=== PATIENT | male | born 1980 | race Caucasian/White ===

== ENCOUNTER → 2016-03-07 | Outpatient (REF) | payer BC ==
[2016-03-07 12:49] LABS: ALBUMIN 4.3 GM/DL (3.2-5.2); ALBUMIN/GLOBULIN RATIO 1.43 (1.00-1.93); ALKALINE PHOSPHATASE 58 U/L (45-117); ALT/SGPT 23 U/L (12-78); ANION GAP 10 MEQ/L (8-16); AST/SGOT 13 U/L (15-37); BILIRUBIN,TOTAL 0.8 MG/DL (0.2-1.0); BLOOD UREA NITROGEN 13 MG/DL (7-18); CALCIUM LEVEL 9.1 MG/DL (8.5-10.1); CARBON DIOXIDE LEVEL 28 MEQ/L (21-32); CHLORIDE LEVEL 104 MEQ/L (98-107); CHOLESTEROL LEVEL 167 MG/DL (<200); CREATININE FOR GFR 0.64 MG/DL (0.70-1.30); GLOMERULAR FILTRATION RATE > 60.0 (>60); GLUCOSE, FASTING 78 MG/DL (70-105); POTASSIUM SERUM 4.1 MEQ/L (3.5-5.1); SODIUM LEVEL 142 MEQ/L (136-145); TOTAL PROTEIN 7.3 GM/DL (6.4-8.2); TRIGLYCERIDES LEVEL 45 MG/DL (<150)
== END ==
LOC: M SFHCPLAZ 07:41
PROVIDERS: ATTEND Physician Assistant
DX: E11.9 Type 2 diabetes mellitus without complications (principal); E78.5 Hyperlipidemia, unspecified

== ENCOUNTER 2016-03-09 10:03 | Emergency (ER) | payer OTHER, BC ==
--- NOTE | 2016-03-09 11:05 | EDDOCDS ---
Nurse's Notes [facility] Name: Fidel Nicole Age: 35 yrs Sex: Male : 1980 Arrival Date: 03/09/2016 Time: 10:03 Bed TR1 Private MD: Amadou Champion M Diagnosis: Patellar tendinitis, left knee Presentation: 03/09 10:08 Presenting complaint: Patient states: sharp pain to patella area of left knee since dy this Saturday night. pain started while walking. activity makes pain worse. Adult Sepsis Screening: The patient does not have new or worsening altered mentation. Patient's respiratory rate is less than 22. Systolic blood pressure is greater than 100. Patient has a qSOFA score of 0- Negative Sepsis Screen. Suicide/Homicide risk assessment- the patient denies having any suicidal and/or homicidal ideations and does not present with any other emotional, behavioral or mental health complaints. Status: Patient is not a rn medical inpatient services or dependent. Transition of care: patient was not received from another setting of care. 10:08 Acuity: MARIA ISABEL Level 4 dy 10:08 Method Of Arrival: Walkin/Carried/Asstd dy Triage Assessment: 10:10 General: Appears in no apparent distress. Pain: Location: left knee. HIV screening NA dy for this visit Offered previously. Historical: - Allergies: No known drug Allergies; - Home Meds: 1. metformin 1,000 mg Oral tab 2 times per day (Last dose: 03/09/2016 07:00) 2. lantus insulin 35 units at bedtime (Last dose: 03/08/2016) - PMHx: Osteoarthritis; Diabetes - NIDDM: controlled; - PSHx: none; - Social history: Smoking status: Patient states was never smoker of tobacco. No barriers to communication noted, The patient speaks fluent Thai, Speaks appropriately for age. - Family history: Not pertinent. - : The pt / caregiver states he / she is not on anticoagulants. Home medication list is obtained from the patient. - Exposure Risk Screening:: None identified. Screenin:57 Screening information is obtained from the patient. Fall risk: No risks identified. srm Assistance ADL's: requires no assistance with activities of daily living. Abuse/DV Screen: The patient / caregiver reports he/she is: not in a situation that causes fear, pain or injury. Nutritional screening: No deficits noted. Advance Directives: There is no active DNR order. home support is adequate. Assessment: 10:57 Musculoskeletal: Circulation, motion, and sensation intact no swelling or bruising srm noted to left knee. Vital Signs: 10:05 BP 153 / 92; Pulse 92; Resp 18; Temp 97.8(O); Pulse Ox 97% on R/A; Weight 108.86 kg ct3 (M); Height 6 ft. 0 in. (182.88 cm) (R); Pain 2/10; 10:05 Body Mass Index 32.55 (108.86 kg, 182.88 cm) ct3 Vitals: 10:05 Log In Time: March 09, 2016 at 10:02. ct3 ED Course: 10:05 Patient visited by Evelyn Knight PCA. ct3 10:05 Amadou Champion is Private Physician. ct3 10:05 Patient moved to Waiting ct3 10:06 Patient moved to Pre RCE ct3 10:07 Patient moved to Triage 2 dy 10:09 Triage Initiated dy 10:39 Blanco Conde PA-C is PHCP. ar2 10:39 Bebe Boucher MD is Attending Physician. ar2 10:41 Patient visited by Blanco Conde PA-C. ar2 10:53 Amadou Champion is Referral Physician. ar2 10:57 The patient / caregiver is instructed regarding the plan of care and ED course. Patient srm has correct armband on for positive identification. 10:57 No IV's were initiated during this patient's visit. No procedures done that require srm assistance. Rao wrap to left knee. Patient has positive distal pulse, brisk capillary refill, and positive sensation after application. 10:58 Patient visited by Fabiola Christy RN. srm 11:02 Patient moved to TR1 dy Order Results: There are currently no results for this order. Outcome: 10:54 Discharge ordered by Provider. ar2 11:02 Discharge Assessment: patient administered narcotics - no. The following High Risk dy Discharge criteria are identified: None. Discharged to home ambulatory. Condition: stable. Discharge instructions given to patient, Instructed on discharge instructions, follow up and referral plans. medication usage, Demonstrated understanding of instructions, medications, Pt was receptive of discharge instructions/ teaching. Prescriptions given X 1. No special radiology studies were completed. Property sent home with patient. 11:03 Patient left the ED. queenie Signatures: Fabiola Christy RN Yaniv Weber RN RN dy Robertshaw, Aaron, PA-C PA-C ar2 Evelyn Knight, YESY STUDENT UNION CONSULTANT ct3 MTDD
--- NOTE | 2016-03-09 11:05 | EDDOCDS ---
Physician Documentation [facility] Name: Fidel Nicole Age: 35 yrs Sex: Male : 1980 Arrival Date: 03/09/2016 Time: 10:03 Bed TR1 Private MD: Amadou Champion M Disposition: 03/09/16 10:54 Discharged to Home/Self Care. Impression: Patellar tendinitis, left knee. - Condition is Stable. - Discharge Instructions: Tendinitis. - Prescriptions for Naprosyn 500 mg Oral Tablet - take 1 tablet by ORAL route 2 times per day take with food; 30 tablet. - Medication Reconciliation, Local Pharmacy Hours form. - Follow up: Amadou Champion; When: 1 week; Reason: Recheck today's complaints. - Problem is new. - Symptoms are unchanged. Historical: - Allergies: No known drug Allergies; - Home Meds: 1. metformin 1,000 mg Oral tab 2 times per day (Last dose: 03/09/2016 07:00) 2. lantus insulin 35 units at bedtime (Last dose: 03/08/2016) - PMHx: Osteoarthritis; Diabetes - NIDDM: controlled; - PSHx: none; - Social history: Smoking status: Patient states was never smoker of tobacco. No barriers to communication noted, The patient speaks fluent Swedish, Speaks appropriately for age. - Family history: Not pertinent. - : The pt / caregiver states he / she is not on anticoagulants. Home medication list is obtained from the patient. - Exposure Risk Screening:: None identified. Vital Signs: 03/09 10:05 BP 153 / 92; Pulse 92; Resp 18; Temp 97.8(O); Pulse Ox 97% on R/A; Weight 108.86 kg / ct3 240 lbs (M); Height 6 ft. 0 in. (182.88 cm) (R); Pain 2/10; 10:05 Body Mass Index 32.55 (108.86 kg, 182.88 cm) ct3 MDM: 10:26 Knee, Complete Ordered. EDMS 10:46 Financial registration complete. lg 10:53 Rao Wrap ordered. ar2 Signatures: Dispatcher [employer] EDMS Fabiola Christy RN RN srm Ganter, LoriLee, Joss Reg lg Keke, Yanvi, RN RN dy Robertshaw, Blanco, PA-C PA-C ar2 MTDD
--- NOTE | 2016-03-09 20:25 | REP ---
Left knee series 03/09/2016 Indication: Left knee pain Comparison: None Findings: The joint spaces are maintained. There is no acute fracture, subluxation or dislocation within the left knee. Hypertrophic bone formation and/or spurring is seen at the patellar tendinous insertion on the anterior tibial tubercle. This is consistent with calcific tendonitis, or can be seen with Harlan Schlatter. Impression: no fracture or joint effusion. Calcification in the patellar tendon insertion on the anterior tibial tubercle compatible with calcific tendinitis; or Harlan Schlatter (usually in in younger age group). Signed by Lauren Colón MD 03/09/2016 08:16 P
--- NOTE | 2016-03-11 12:04 | EDDOCDS ---
Nurse's Notes [facility] Name: Fidel Nicole Age: 35 yrs Sex: Male : 1980 Arrival Date: 03/09/2016 Time: 10:03 Bed TR1 Private MD: Amadou Champion M Diagnosis: Patellar tendinitis, left knee Presentation: 03/09 10:08 Presenting complaint: Patient states: sharp pain to patella area of left knee since dy this Saturday night. pain started while walking. activity makes pain worse. Adult Sepsis Screening: The patient does not have new or worsening altered mentation. Patient's respiratory rate is less than 22. Systolic blood pressure is greater than 100. Patient has a qSOFA score of 0- Negative Sepsis Screen. Suicide/Homicide risk assessment- the patient denies having any suicidal and/or homicidal ideations and does not present with any other emotional, behavioral or mental health complaints. 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 Transition of care: patient was not received from another setting of care. 10:08 Acuity: MARIA ISABEL Level 4 dy 10:08 Method Of Arrival: Walkin/Carried/Asstd dy Triage Assessment: 10:10 General: Appears in no apparent distress. Pain: Location: left knee. HIV screening NA dy for this visit Offered previously. Historical: - Allergies: No known drug Allergies; - Home Meds: 1. metformin 1,000 mg Oral tab 2 times per day (Last dose: 03/09/2016 07:00) 2. lantus insulin 35 units at bedtime (Last dose: 03/08/2016) - PMHx: Osteoarthritis; Diabetes - NIDDM: controlled; - PSHx: none; - Social history: Smoking status: Patient states was never smoker of tobacco. No barriers to communication noted, The patient speaks fluent Tamazight, Speaks appropriately for age. - Family history: Not pertinent. - : The pt / caregiver states he / she is not on anticoagulants. Home medication list is obtained from the patient. - Exposure Risk Screening:: None identified. Screenin:57 Screening information is obtained from the patient. Fall risk: No risks identified. srm Assistance ADL's: requires no assistance with activities of daily living. Abuse/DV Screen: The patient / caregiver reports he/she is: not in a situation that causes fear, pain or injury. Nutritional screening: No deficits noted. Advance Directives: There is no active DNR order. home support is adequate. Assessment: 10:57 Musculoskeletal: Circulation, motion, and sensation intact no swelling or bruising srm noted to left knee. Vital Signs: 10:05 BP 153 / 92; Pulse 92; Resp 18; Temp 97.8(O); Pulse Ox 97% on R/A; Weight 108.86 kg ct3 (M); Height 6 ft. 0 in. (182.88 cm) (R); Pain 10; 10:05 Body Mass Index 32.55 (108.86 kg, 182.88 cm) ct3 Vitals: 10:05 Log In Time: March 09, 2016 at 10:02. ct3 ED Course: 10:05 Patient visited by Evelyn Knight PCA. ct3 10:05 Amadou Champion is Private Physician. ct3 10:05 Patient moved to Waiting ct3 10:06 Patient moved to Pre RCE ct3 10:07 Patient moved to Triage 2 dy 10:09 Triage Initiated dy 10:39 Blanco Conde PA-C is PHCP. ar2 10:39 Bebe Boucher MD is Attending Physician. ar2 10:41 Patient visited by Blanco Conde PA-C. ar2 10:53 Amadou Champion is Referral Physician. ar2 10:57 The patient / caregiver is instructed regarding the plan of care and ED course. Patient srm has correct armband on for positive identification. 10:57 No IV's were initiated during this patient's visit. No procedures done that require srm assistance. Rao wrap to left knee. Patient has positive distal pulse, brisk capillary refill, and positive sensation after application. 10:58 Patient visited by Fabiola Christy RN. srm 11:02 Patient moved to TR1 dy 13:14 [place] [place] was scanned into [employer] and attached to record. lg 14:28 T-Sheet-- Draft Copy was scanned into [employer] and attached to record. gb 14:29 Radiology Report was scanned into [employer] and attached to record. gb 21:02 Knee, Complete Returned. EDMS Order Results: Radiology Order: Knee, Complete Test: Knee, Complete REASON FOR EXAMINATION: LEFT KNEE PAIN; Left knee series 03/09/2016; ; Indication: Left knee pain; ; Comparison: None; ; Findings: The joint spaces are maintained. There is no acute fracture,; subluxation or dislocation within the left knee. Hypertrophic bone formation; and/or spurring is seen at the patellar tendinous insertion on the anterior; tibial tubercle. This is consistent with calcific tendonitis, or can be seen; with Milton Schlatter.; ; Impression: no fracture or joint effusion.; ; Calcification in the patellar tendon insertion on the anterior tibial tubercle; compatible with calcific tendinitis; or Milton Schlatter (usually in in younger; age group).; ; ; Signed by; Lauren Colón MD 03/09/2016 08:16 P; Outcome: 10:54 Discharge ordered by Provider. ar2 11:02 Discharge Assessment: patient administered narcotics - no. The following High Risk dy Discharge criteria are identified: None. Discharged to home ambulatory. Condition: stable. Discharge instructions given to patient, Instructed on discharge instructions, follow up and referral plans. medication usage, Demonstrated understanding of instructions, medications, Pt was receptive of discharge instructions/ teaching. Prescriptions given X 1. No special radiology studies were completed. Property sent home with patient. 11:03 Patient left the ED. dy Signatures: Dispatcher [employer] EDMS Fabiola Chritsy, RN RN [facility] Elli Flores, Reg Reg gb Masha Espinosa, Reg Reg Yaniv Chavez RN RN dy Robertshaw, Aaron, PA-Evelyn PA-Evelyn ar2 Evelyn Knight, PERSONAL CARE ATTENDANT PERSONAL CARE ATTENDANT ct3 Chart Complete MTDD
--- NOTE | 2016-03-11 12:04 | EDDOCDS ---
Physician Documentation [facility] Name: Fidel Nicole Age: 35 yrs Sex: Male : 1980 Arrival Date: 03/09/2016 Time: 10:03 Bed TR1 Private MD: Amadou Champion M Disposition: 03/09/16 10:54 Discharged to Home/Self Care. Impression: Patellar tendinitis, left knee. - Condition is Stable. - Discharge Instructions: Tendinitis. - Prescriptions for Naprosyn 500 mg Oral Tablet - take 1 tablet by ORAL route 2 times per day take with food; 30 tablet. - Medication Reconciliation, Local Pharmacy Hours form. - Follow up: Amadou Champion; When: 1 week; Reason: Recheck today's complaints. - Problem is new. - Symptoms are unchanged. Historical: - Allergies: No known drug Allergies; - Home Meds: 1. metformin 1,000 mg Oral tab 2 times per day (Last dose: 03/09/2016 07:00) 2. lantus insulin 35 units at bedtime (Last dose: 03/08/2016) - PMHx: Osteoarthritis; Diabetes - NIDDM: controlled; - PSHx: none; - Social history: Smoking status: Patient states was never smoker of tobacco. No barriers to communication noted, The patient speaks fluent Kazakh, Speaks appropriately for age. - Family history: Not pertinent. - : The pt / caregiver states he / she is not on anticoagulants. Home medication list is obtained from the patient. - Exposure Risk Screening:: None identified. Vital Signs: 03/09 10:05 BP 153 / 92; Pulse 92; Resp 18; Temp 97.8(O); Pulse Ox 97% on R/A; Weight 108.86 kg / ct3 240 lbs (M); Height 6 ft. 0 in. (182.88 cm) (R); Pain 2/10; 10:05 Body Mass Index 32.55 (108.86 kg, 182.88 cm) ct3 MDM: 10:26 Knee, Complete Ordered. EDMS 10:46 Financial registration complete. lg 10:53 Rao Wrap ordered. ar2 13:14 [place] [place] Agreement was scanned into [employer] and attached to record. lg 14:28 T-Sheet-- Draft Copy was scanned into [employer] and attached to record. gb 14:29 Radiology Report was scanned into [employer] and attached to record. gb Signatures: Dispatcher [employer] EDFabiola Anthony, RN RN srm Elli Flores, Reg Reg gb Masha Espinosa, Reg Reg lg Yaniv Davies RN RN dy Robertshaw, Aaron, PAJuliaC PALg ar2 The chart was reviewed and I authenticate all verbal orders and agree with the evaluation and treatment provided.Attachments: 13:14 [facility] [place] Payment Agreement lg 14:28 T-Sheet-- Draft Copy gb Chart Complete MTDD
--- NOTE | 2016-03-11 12:04 | EDDOCDS ---
Physician Documentation [facility] Name: Fidel Nicole Age: 35 yrs Sex: Male : 1980 Arrival Date: 03/09/2016 Time: 10:03 Bed TR1 Private MD: Amadou Champion M Disposition: 03/09/16 10:54 Discharged to Home/Self Care. Impression: Patellar tendinitis, left knee. - Condition is Stable. - Discharge Instructions: Tendinitis. - Prescriptions for Naprosyn 500 mg Oral Tablet - take 1 tablet by ORAL route 2 times per day take with food; 30 tablet. - Medication Reconciliation, Local Pharmacy Hours form. - Follow up: Amadou Champion; When: 1 week; Reason: Recheck today's complaints. - Problem is new. - Symptoms are unchanged. Historical: - Allergies: No known drug Allergies; - Home Meds: 1. metformin 1,000 mg Oral tab 2 times per day (Last dose: 03/09/2016 07:00) 2. lantus insulin 35 units at bedtime (Last dose: 03/08/2016) - PMHx: Osteoarthritis; Diabetes - NIDDM: controlled; - PSHx: none; - Social history: Smoking status: Patient states was never smoker of tobacco. No barriers to communication noted, The patient speaks fluent Tanzanian, Speaks appropriately for age. - Family history: Not pertinent. - : The pt / caregiver states he / she is not on anticoagulants. Home medication list is obtained from the patient. - Exposure Risk Screening:: None identified. Vital Signs: 03/09 10:05 BP 153 / 92; Pulse 92; Resp 18; Temp 97.8(O); Pulse Ox 97% on R/A; Weight 108.86 kg / ct3 240 lbs (M); Height 6 ft. 0 in. (182.88 cm) (R); Pain 2/10; 10:05 Body Mass Index 32.55 (108.86 kg, 182.88 cm) ct3 MDM: 10:26 Knee, Complete Ordered. EDMS 10:46 Financial registration complete. lg 10:53 Rao Wrap ordered. ar2 13:14 [place] [place] Payment Agreement was scanned into [employer] and attached to record. lg 14:28 T-Sheet-- Draft Copy was scanned into [employer] and attached to record. gb 14:29 Radiology Report was scanned into [employer] and attached to record. gb Signatures: Dispatcher [employer] EDFabiola Anthony, RN RN srm Elli Flores, Reg Reg gb Masha Espinosa, Reg Reg lg Yaniv Davies RN RN dy Robertshaw, Aaron, PAJuliaC PALg ar2 The chart was reviewed and I authenticate all verbal orders and agree with the evaluation and treatment provided.Attachments: 13:14 [place] [place] Payment Agreement lg 14:28 T-Sheet-- Draft Copy gb Chart Complete MTDD
--- NOTE | 2016-03-13 20:34 | EDDOCDS ---
Nurse's Notes [facility] Name: Fidel Nicole Age: 35 yrs Sex: Male : 1980 Arrival Date: 03/09/2016 Time: 10:03 Bed TR1 Private MD: Amadou Champion M Diagnosis: Patellar tendinitis, left knee Presentation: 03/09 10:08 Presenting complaint: Patient states: sharp pain to patella area of left knee since dy this Saturday night. pain started while walking. activity makes pain worse. Adult Sepsis Screening: The patient does not have new or worsening altered mentation. Patient's respiratory rate is less than 22. Systolic blood pressure is greater than 100. Patient has a qSOFA score of 0- Negative Sepsis Screen. Suicide/Homicide risk assessment- the patient denies having any suicidal and/or homicidal ideations and does not present with any other emotional, behavioral or mental health complaints. Status: Patient is not a sales service supervisor or dependent. Transition of care: patient was not received from another setting of care. 10:08 Acuity: MARIA ISABEL Level 4 dy 10:08 Method Of Arrival: Walkin/Carried/Asstd dy Triage Assessment: 10:10 General: Appears in no apparent distress. Pain: Location: left knee. HIV screening NA dy for this visit Offered previously. Historical: - Allergies: No known drug Allergies; - Home Meds: 1. metformin 1,000 mg Oral tab 2 times per day (Last dose: 03/09/2016 07:00) 2. lantus insulin 35 units at bedtime (Last dose: 03/08/2016) - PMHx: Osteoarthritis; Diabetes - NIDDM: controlled; - PSHx: none; - Social history: Smoking status: Patient states was never smoker of tobacco. No barriers to communication noted, The patient speaks fluent Amharic, Speaks appropriately for age. - Family history: Not pertinent. - : The pt / caregiver states he / she is not on anticoagulants. Home medication list is obtained from the patient. - Exposure Risk Screening:: None identified. Screenin:57 Screening information is obtained from the patient. Fall risk: No risks identified. srm Assistance ADL's: requires no assistance with activities of daily living. Abuse/DV Screen: The patient / caregiver reports he/she is: not in a situation that causes fear, pain or injury. Nutritional screening: No deficits noted. Advance Directives: There is no active DNR order. home support is adequate. Assessment: 10:57 Musculoskeletal: Circulation, motion, and sensation intact no swelling or bruising srm noted to left knee. Vital Signs: 10:05 BP 153 / 92; Pulse 92; Resp 18; Temp 97.8(O); Pulse Ox 97% on R/A; Weight 108.86 kg ct3 (M); Height 6 ft. 0 in. (182.88 cm) (R); Pain 10; 10:05 Body Mass Index 32.55 (108.86 kg, 182.88 cm) ct3 Vitals: 10:05 Log In Time: March 09, 2016 at 10:02. ct3 ED Course: 10:05 Patient visited by Evelyn Knight PCA. ct3 10:05 Amadou Champion is Private Physician. ct3 10:05 Patient moved to Waiting ct3 10:06 Patient moved to Pre RCE ct3 10:07 Patient moved to Triage 2 dy 10:09 Triage Initiated dy 10:39 Blanco Conde PA-C is PHCP. ar2 10:39 Bebe Boucher MD is Attending Physician. ar2 10:41 Patient visited by Blanco Conde PA-C. ar2 10:53 Amadou Champion is Referral Physician. ar2 10:57 The patient / caregiver is instructed regarding the plan of care and ED course. Patient srm has correct armband on for positive identification. 10:57 No IV's were initiated during this patient's visit. No procedures done that require srm assistance. Rao wrap to left knee. Patient has positive distal pulse, brisk capillary refill, and positive sensation after application. 10:58 Patient visited by Fabiola Christy RN. srm 11:02 Patient moved to TR1 dy 13:14 [place] [place] Payment Agreement was scanned into [employer] and attached to record. lg 14:28 T-Sheet-- Draft Copy was scanned into [employer] and attached to record. gb 14:29 Radiology Report was scanned into [employer] and attached to record. gb 21:02 Knee, Complete Returned. EDMS Order Results: Radiology Order: Knee, Complete Test: Knee, Complete REASON FOR EXAMINATION: LEFT KNEE PAIN; Left knee series 03/09/2016; ; Indication: Left knee pain; ; Comparison: None; ; Findings: The joint spaces are maintained. There is no acute fracture,; subluxation or dislocation within the left knee. Hypertrophic bone formation; and/or spurring is seen at the patellar tendinous insertion on the anterior; tibial tubercle. This is consistent with calcific tendonitis, or can be seen; with Milton Schlatter.; ; Impression: no fracture or joint effusion.; ; Calcification in the patellar tendon insertion on the anterior tibial tubercle; compatible with calcific tendinitis; or Milton Schlatter (usually in in younger; age group).; ; ; Signed by; Lauren Colón MD 03/09/2016 08:16 P; Outcome: 10:54 Discharge ordered by Provider. ar2 11:02 Discharge Assessment: patient administered narcotics - no. The following High Risk dy Discharge criteria are identified: None. Discharged to home ambulatory. Condition: stable. Discharge instructions given to patient, Instructed on discharge instructions, follow up and referral plans. medication usage, Demonstrated understanding of instructions, medications, Pt was receptive of discharge instructions/ teaching. Prescriptions given X 1. No special radiology studies were completed. Property sent home with patient. 11:03 Patient left the ED. dy Signatures: Dispatcher [employer] EDMS Fabiola Christy, RN RN [facility] Elli Flores, Reg Reg gb Masha Espinosa, Reg Reg Yaniv Chavez RN RN dy Robertshaw, Aaron, PA-Evelyn PA-Evelyn ar2 Evelyn Knight, NETWORK ADMINISTRATOR NETWORK ADMINISTRATOR ct3 MTDD
--- NOTE | 2016-03-13 20:34 | EDDOCDS ---
Physician Documentation [facility] Name: Fidel Nicole Age: 35 yrs Sex: Male : 1980 Arrival Date: 03/09/2016 Time: 10:03 Bed TR1 Private MD: Amadou Champion M Disposition: 03/09/16 10:54 Discharged to Home/Self Care. Impression: Patellar tendinitis, left knee. - Condition is Stable. - Discharge Instructions: Tendinitis. - Prescriptions for Naprosyn 500 mg Oral Tablet - take 1 tablet by ORAL route 2 times per day take with food; 30 tablet. - Medication Reconciliation, Local Pharmacy Hours form. - Follow up: Amadou Champion; When: 1 week; Reason: Recheck today's complaints. - Problem is new. - Symptoms are unchanged. Historical: - Allergies: No known drug Allergies; - Home Meds: 1. metformin 1,000 mg Oral tab 2 times per day (Last dose: 03/09/2016 07:00) 2. lantus insulin 35 units at bedtime (Last dose: 03/08/2016) - PMHx: Osteoarthritis; Diabetes - NIDDM: controlled; - PSHx: none; - Social history: Smoking status: Patient states was never smoker of tobacco. No barriers to communication noted, The patient speaks fluent Tongan, Speaks appropriately for age. - Family history: Not pertinent. - : The pt / caregiver states he / she is not on anticoagulants. Home medication list is obtained from the patient. - Exposure Risk Screening:: None identified. Vital Signs: 03/09 10:05 BP 153 / 92; Pulse 92; Resp 18; Temp 97.8(O); Pulse Ox 97% on R/A; Weight 108.86 kg / ct3 240 lbs (M); Height 6 ft. 0 in. (182.88 cm) (R); Pain 2/10; 10:05 Body Mass Index 32.55 (108.86 kg, 182.88 cm) ct3 MDM: 10:26 Knee, Complete Ordered. EDMS 10:46 Financial registration complete. lg 10:53 Rao Wrap ordered. ar2 13:14 [facility] [place] was scanned into [employer] and attached to record. lg 14:28 T-Sheet-- Draft Copy was scanned into [employer] and attached to record. gb 14:29 Radiology Report was scanned into [employer] and attached to record. Addendum: 03/13/2016 20:32 Radiology Callback: amadou champion on left knee film for fumlg. ml Signatures: Dispatcher [employer] Marcia Suarez MD MD ml Michelson, Staci, RN RN [facility] Elli Flores, Reg Reg gb Masha Espinosa, Reg Reg lg Yaniv Davies RN RN dy Robertshaw, Aaron, PA-Evelyn PA-Evelyn ar2 The chart was reviewed and I authenticate all verbal orders and agree with the evaluation and treatment provided.Attachments: 03/09 13:14 [facility] [place] Agreement lg 14:28 T-Sheet-- Draft Copy MTDD
--- NOTE | 2016-03-13 20:34 | EDDOCDS ---
Physician Documentation [facility] Name: Fidel Nicole Age: 35 yrs Sex: Male : 1980 Arrival Date: 03/09/2016 Time: 10:03 Bed TR1 Private MD: Amadou Champion M Disposition: 03/09/16 10:54 Discharged to Home/Self Care. Impression: Patellar tendinitis, left knee. - Condition is Stable. - Discharge Instructions: Tendinitis. - Prescriptions for Naprosyn 500 mg Oral Tablet - take 1 tablet by ORAL route 2 times per day take with food; 30 tablet. - Medication Reconciliation, Local Pharmacy Hours form. - Follow up: Amadou Champion; When: 1 week; Reason: Recheck today's complaints. - Problem is new. - Symptoms are unchanged. Historical: - Allergies: No known drug Allergies; - Home Meds: 1. metformin 1,000 mg Oral tab 2 times per day (Last dose: 03/09/2016 07:00) 2. lantus insulin 35 units at bedtime (Last dose: 03/08/2016) - PMHx: Osteoarthritis; Diabetes - NIDDM: controlled; - PSHx: none; - Social history: Smoking status: Patient states was never smoker of tobacco. No barriers to communication noted, The patient speaks fluent Nigerian, Speaks appropriately for age. - Family history: Not pertinent. - : The pt / caregiver states he / she is not on anticoagulants. Home medication list is obtained from the patient. - Exposure Risk Screening:: None identified. Vital Signs: 03/09 10:05 BP 153 / 92; Pulse 92; Resp 18; Temp 97.8(O); Pulse Ox 97% on R/A; Weight 108.86 kg / ct3 240 lbs (M); Height 6 ft. 0 in. (182.88 cm) (R); Pain 2/10; 10:05 Body Mass Index 32.55 (108.86 kg, 182.88 cm) ct3 MDM: 10:26 Knee, Complete Ordered. EDMS 10:46 Financial registration complete. lg 10:53 Rao Wrap ordered. ar2 13:14 [facility] [place] Agreement was scanned into [employer] and attached to record. lg 14:28 T-Sheet-- Draft Copy was scanned into [employer] and attached to record. gb 14:29 Radiology Report was scanned into [employer] and attached to record. Addendum: 03/13/2016 20:32 Radiology Callback: amadou champion on left knee film for fumlg. ml Signatures: Dispatcher [employer] Marcia Suarez MD MD ml Michelson, Staci, RN RN [facility] Elli Flores, Reg Reg gb Masha Espinosa, Reg Reg lg Yaniv Davies RN RN dy Robertshaw, Aaron, PA-Evelyn PA-Evelyn ar2 The chart was reviewed and I authenticate all verbal orders and agree with the evaluation and treatment provided.Attachments: 03/09 13:14 [facility] Agreement lg 14:28 T-Sheet-- Draft Copy MTDD
--- NOTE | 2016-03-13 20:35 | EDDOCDS ---
Physician Documentation [facility] Name: Fidel Nicole Age: 35 yrs Sex: Male : 1980 Arrival Date: 03/09/2016 Time: 10:03 Bed TR1 Private MD: Amadou Champion M Disposition: 03/09/16 10:54 Discharged to Home/Self Care. Impression: Patellar tendinitis, left knee. - Condition is Stable. - Discharge Instructions: Tendinitis. - Prescriptions for Naprosyn 500 mg Oral Tablet - take 1 tablet by ORAL route 2 times per day take with food; 30 tablet. - Medication Reconciliation, Local Pharmacy Hours form. - Follow up: Amadou Champion; When: 1 week; Reason: Recheck today's complaints. - Problem is new. - Symptoms are unchanged. Historical: - Allergies: No known drug Allergies; - Home Meds: 1. metformin 1,000 mg Oral tab 2 times per day (Last dose: 03/09/2016 07:00) 2. lantus insulin 35 units at bedtime (Last dose: 03/08/2016) - PMHx: Osteoarthritis; Diabetes - NIDDM: controlled; - PSHx: none; - Social history: Smoking status: Patient states was never smoker of tobacco. No barriers to communication noted, The patient speaks fluent Lebanese, Speaks appropriately for age. - Family history: Not pertinent. - : The pt / caregiver states he / she is not on anticoagulants. Home medication list is obtained from the patient. - Exposure Risk Screening:: None identified. Vital Signs: 03/09 10:05 BP 153 / 92; Pulse 92; Resp 18; Temp 97.8(O); Pulse Ox 97% on R/A; Weight 108.86 kg / ct3 240 lbs (M); Height 6 ft. 0 in. (182.88 cm) (R); Pain 2/10; 10:05 Body Mass Index 32.55 (108.86 kg, 182.88 cm) ct3 MDM: 10:26 Knee, Complete Ordered. EDMS 10:46 Financial registration complete. lg 10:53 Rao Wrap ordered. ar2 13:14 [facility] [place] Payment Agreement was scanned into [employer] and attached to record. lg 14:28 T-Sheet-- Draft Copy was scanned into [employer] and attached to record. gb 14:29 Radiology Report was scanned into [employer] and attached to record. Addendum: 03/13/2016 20:32 Radiology Callback: amadou champion on left knee film for fumlg. ml Signatures: Dispatcher [employer] Marcia Suarez MD MD ml Michelson, Staci, RN RN [facility] Elli Flores, Reg Reg gb Masha Espinosa, Reg Reg lg Yaniv Davies RN RN dy Robertshaw, Aaron, PA-Evelyn PA-Evelyn ar2 The chart was reviewed and I authenticate all verbal orders and agree with the evaluation and treatment provided.Attachments: 03/09 13:14 [facility] [place] Payment Agreement lg 14:28 T-Sheet-- Draft Copy Chart Complete MTDD
--- NOTE | 2016-03-13 20:35 | EDDOCDS ---
Nurse's Notes [facility] Name: Fidel Nicole Age: 35 yrs Sex: Male : 1980 Arrival Date: 03/09/2016 Time: 10:03 Bed TR1 Private MD: Amadou Champion M Diagnosis: Patellar tendinitis, left knee Presentation: 03/09 10:08 Presenting complaint: Patient states: sharp pain to patella area of left knee since dy this Saturday night. pain started while walking. activity makes pain worse. Adult Sepsis Screening: The patient does not have new or worsening altered mentation. Patient's respiratory rate is less than 22. Systolic blood pressure is greater than 100. Patient has a qSOFA score of 0- Negative Sepsis Screen. Suicide/Homicide risk assessment- the patient denies having any suicidal and/or homicidal ideations and does not present with any other emotional, behavioral or mental health complaints. Status: Patient is not a room service server or dependent. Transition of care: patient was not received from another setting of care. 10:08 Acuity: MARIA ISABEL Level 4 dy 10:08 Method Of Arrival: Walkin/Carried/Asstd dy Triage Assessment: 10:10 General: Appears in no apparent distress. Pain: Location: left knee. HIV screening NA dy for this visit Offered previously. Historical: - Allergies: No known drug Allergies; - Home Meds: 1. metformin 1,000 mg Oral tab 2 times per day (Last dose: 03/09/2016 07:00) 2. lantus insulin 35 units at bedtime (Last dose: 03/08/2016) - PMHx: Osteoarthritis; Diabetes - NIDDM: controlled; - PSHx: none; - Social history: Smoking status: Patient states was never smoker of tobacco. No barriers to communication noted, The patient speaks fluent Icelandic, Speaks appropriately for age. - Family history: Not pertinent. - : The pt / caregiver states he / she is not on anticoagulants. Home medication list is obtained from the patient. - Exposure Risk Screening:: None identified. Screenin:57 Screening information is obtained from the patient. Fall risk: No risks identified. srm Assistance ADL's: requires no assistance with activities of daily living. Abuse/DV Screen: The patient / caregiver reports he/she is: not in a situation that causes fear, pain or injury. Nutritional screening: No deficits noted. Advance Directives: There is no active DNR order. home support is adequate. Assessment: 10:57 Musculoskeletal: Circulation, motion, and sensation intact no swelling or bruising srm noted to left knee. Vital Signs: 10:05 BP 153 / 92; Pulse 92; Resp 18; Temp 97.8(O); Pulse Ox 97% on R/A; Weight 108.86 kg ct3 (M); Height 6 ft. 0 in. (182.88 cm) (R); Pain 10; 10:05 Body Mass Index 32.55 (108.86 kg, 182.88 cm) ct3 Vitals: 10:05 Log In Time: March 09, 2016 at 10:02. ct3 ED Course: 10:05 Patient visited by Evelyn Knight PCA. ct3 10:05 Amadou Champion is Private Physician. ct3 10:05 Patient moved to Waiting ct3 10:06 Patient moved to Pre RCE ct3 10:07 Patient moved to Triage 2 dy 10:09 Triage Initiated dy 10:39 Blanco Conde PA-C is PHCP. ar2 10:39 Bebe Boucher MD is Attending Physician. ar2 10:41 Patient visited by Blanco Conde PA-C. ar2 10:53 Amadou Champion is Referral Physician. ar2 10:57 The patient / caregiver is instructed regarding the plan of care and ED course. Patient srm has correct armband on for positive identification. 10:57 No IV's were initiated during this patient's visit. No procedures done that require srm assistance. Rao wrap to left knee. Patient has positive distal pulse, brisk capillary refill, and positive sensation after application. 10:58 Patient visited by Fabiola Christy RN. srm 11:02 Patient moved to TR1 dy 13:14 [facility] [place] Payment Agreement was scanned into [employer] and attached to record. lg 14:28 T-Sheet-- Draft Copy was scanned into [employer] and attached to record. gb 14:29 Radiology Report was scanned into [employer] and attached to record. gb 21:02 Knee, Complete Returned. EDMS Order Results: Radiology Order: Knee, Complete Test: Knee, Complete REASON FOR EXAMINATION: LEFT KNEE PAIN; Left knee series 03/09/2016; ; Indication: Left knee pain; ; Comparison: None; ; Findings: The joint spaces are maintained. There is no acute fracture,; subluxation or dislocation within the left knee. Hypertrophic bone formation; and/or spurring is seen at the patellar tendinous insertion on the anterior; tibial tubercle. This is consistent with calcific tendonitis, or can be seen; with Milton Schlatter.; ; Impression: no fracture or joint effusion.; ; Calcification in the patellar tendon insertion on the anterior tibial tubercle; compatible with calcific tendinitis; or Milton Schlatter (usually in in younger; age group).; ; ; Signed by; Lauren Colón MD 03/09/2016 08:16 P; Outcome: 10:54 Discharge ordered by Provider. ar2 11:02 Discharge Assessment: patient administered narcotics - no. The following High Risk dy Discharge criteria are identified: None. Discharged to home ambulatory. Condition: stable. Discharge instructions given to patient, Instructed on discharge instructions, follow up and referral plans. medication usage, Demonstrated understanding of instructions, medications, Pt was receptive of discharge instructions/ teaching. Prescriptions given X 1. No special radiology studies were completed. Property sent home with patient. 11:03 Patient left the ED. dy Signatures: Dispatcher [employer] EDMS Fabiola Christy, RN RN [facility] Elli Flores, Reg Reg gb Masha Espinosa, Reg Reg Yaniv Chavez RN RN dy Robertshaw, Aaron, PA-Evelyn PA-Evelyn ar2 Evelyn Knight, BUSINESS UNIT LEADER BUSINESS UNIT LEADER ct3 Chart Complete MTDD
--- NOTE | 2016-03-13 20:35 | EDDOCDS ---
Physician Documentation [facility] Name: Fidel Nicole Age: 35 yrs Sex: Male : 1980 Arrival Date: 03/09/2016 Time: 10:03 Bed TR1 Private MD: Amadou Champion M Disposition: 03/09/16 10:54 Discharged to Home/Self Care. Impression: Patellar tendinitis, left knee. - Condition is Stable. - Discharge Instructions: Tendinitis. - Prescriptions for Naprosyn 500 mg Oral Tablet - take 1 tablet by ORAL route 2 times per day take with food; 30 tablet. - Medication Reconciliation, Local Pharmacy Hours form. - Follow up: Amadou Champion; When: 1 week; Reason: Recheck today's complaints. - Problem is new. - Symptoms are unchanged. Historical: - Allergies: No known drug Allergies; - Home Meds: 1. metformin 1,000 mg Oral tab 2 times per day (Last dose: 03/09/2016 07:00) 2. lantus insulin 35 units at bedtime (Last dose: 03/08/2016) - PMHx: Osteoarthritis; Diabetes - NIDDM: controlled; - PSHx: none; - Social history: Smoking status: Patient states was never smoker of tobacco. No barriers to communication noted, The patient speaks fluent Vietnamese, Speaks appropriately for age. - Family history: Not pertinent. - : The pt / caregiver states he / she is not on anticoagulants. Home medication list is obtained from the patient. - Exposure Risk Screening:: None identified. Vital Signs: 03/09 10:05 BP 153 / 92; Pulse 92; Resp 18; Temp 97.8(O); Pulse Ox 97% on R/A; Weight 108.86 kg / ct3 240 lbs (M); Height 6 ft. 0 in. (182.88 cm) (R); Pain 2/10; 10:05 Body Mass Index 32.55 (108.86 kg, 182.88 cm) ct3 MDM: 10:26 Knee, Complete Ordered. EDMS 10:46 Financial registration complete. lg 10:53 Rao Wrap ordered. ar2 13:14 [facility] [place] was scanned into [employer] and attached to record. lg 14:28 T-Sheet-- Draft Copy was scanned into [employer] and attached to record. gb 14:29 Radiology Report was scanned into [employer] and attached to record. Addendum: 03/13/2016 20:32 Radiology Callback: amadou champion on left knee film for fumlg. ml Signatures: Dispatcher [employer] Marcia Suarez MD MD ml Michelson, Staci, RN RN [facility] Elli Flores, Reg Reg gb Masha Espinosa, Reg Reg lg Yaniv Davies RN RN dy Robertshaw, Aaron, PA-Evelyn PA-Evelyn ar2 The chart was reviewed and I authenticate all verbal orders and agree with the evaluation and treatment provided.Attachments: 03/09 13:14 [facility] [place] Agreement lg 14:28 T-Sheet-- Draft Copy Chart Complete MTDD
== END 2016-03-09 11:03 | disposition home or self-care (01) ==
LOC: M ED 10:03
DX: M76.52 Patellar tendinitis, left knee (principal); M19.90 Unspecified osteoarthritis, unspecified site; E11.9 Type 2 diabetes mellitus without complications; Z79.4 Long term (current) use of insulin; Z79.84 Long term (current) use of oral hypoglycemic drugs

== ENCOUNTER 2016-04-21 07:18 | Emergency (ER) | payer BC, OTHER ==
[2016-04-21] MEDS ORDERED: ACETAMINOPHEN 325 MG TAB As Ordered ONE (09:18)
--- NOTE | 2016-04-21 09:33 | REP ---
Clinical: Trauma. Technique: AP, lateral, bilateral oblique views right wrist . Findings: The carpal bones, surrounding osseous structures, soft tissues, and joint spaces are normal. There is no evidence for acute fracture or dislocation. No subcutaneous emphysema or radiodense foreign body. Impression: Normal wrist series. No acute fracture or dislocation Signed by Derrick Lizama MD 04/21/2016 09:24 A
--- NOTE | 2016-04-21 10:02 | EDDOCDS ---
Nurse's Notes [facility] Name: Fidel Nicole Age: 36 yrs Sex: Male : 1980 Arrival Date: 04/21/2016 Time: 07:18 Bed TR8 Private MD: Diagnosis: Contusion of right wrist-skin problem-likely devoping abscess vs contusion Presentation: 04/21 07:55 Presenting complaint: Patient states: Right wrist/FA pain tenderness and swelling began mlb1 two days ago no known injury. Adult Sepsis Screening: The patient does not have new or worsening altered mentation. Patient's respiratory rate is less than 22. Systolic blood pressure is greater than 100. Patient has a qSOFA score of 0- Negative Sepsis Screen. Suicide/Homicide risk assessment- the patient denies having any suicidal and/or homicidal ideations and does not present with any other emotional, behavioral or mental health complaints. Status: Patient is not a vp customer service or dependent. Transition of care: patient was not received from another setting of care. 07:55 Acuity: MARIA ISABEL Level 4 mlb1 07:55 Method Of Arrival: Walkin/Carried/Asstd mlb1 Triage Assessment: 07:58 General: Appears in no apparent distress, Behavior is appropriate for age, cooperative. mlb1 Pain: Location: dorsal aspect of right forearm Pain currently is 3 out of 10 on a pain scale. At worst was 10 out of 10 on a pain scale. Aggravated by increased activity. Musculoskeletal: Circulation, motion, and sensation intact Swelling present in dorsal aspect of right forearm. 10:01 HIV screening NA for this visit Offered previously. dls Historical: - Allergies: no known allergies; - Home Meds: 1. lantus insulin 35 units at bedtime 2. metformin 1,000 mg Oral tab 2 times per day 3. Jardiance 10 mg oral tab 1 tab once daily 4. rosuvastatin 10 mg oral tab 1 tab once daily - PMHx: Osteoarthritis; Diabetes - IDDM: controlled; - PSHx: none; - Social history: Smoking status: Patient states was never smoker of tobacco. No barriers to communication noted, The patient speaks fluent Burmese, Speaks appropriately for age. - Family history: Not pertinent. - : The pt / caregiver states he / she is not on anticoagulants. Home medication list is obtained from the patient. - Exposure Risk Screening:: None identified. Screenin:32 Screening information is obtained from the patient. Primary language is Burmese. Fall dls risk: No risks identified. Assistance ADL's: requires no assistance with activities of daily living. Abuse/DV Screen: The patient / caregiver reports he/she is: not in a situation that causes fear, pain or injury. Nutritional screening: No deficits noted. Advance Directives: Currently, there is no health care proxy. There is no active DNR order. There is no living will. There is no Power of Qa Intern. home support is adequate. Assessment: 09:31 General: Appears in no apparent distress, well developed, well nourished, well groomed, dls Behavior is cooperative. Awake, alert, oriented. Skin warm and dry. Moves all extremities. Bilateral breath sounds clear. Respirations unlabored. Abdomen soft, non-tender. No apparent distress. The patient / caregiver is instructed regarding the plan of care and ED course. Vital Signs: 07:58 BP 118 / 71; Pulse 96; Resp 16; Temp 96.9(T); Pulse Ox 98% on R/A; Weight 110.68 kg mlb1 (R); Height 5 ft. 10 in. (177.80 cm); Pain 4/10; 09:49 BP 123 / 81; Pulse 86; Resp 18; Temp 97.5(TE); Pulse Ox 99% on R/A; Pain 0/10; dem1 07:58 Body Mass Index 35.01 (110.68 kg, 177.80 cm) [facility] Vitals: 07:58 Log In Time: April 21, 2016 at 07:19. [facility] ED Course: 07:19 Patient visited by Jory Graham Reg. hs2 07:19 Patient moved to Waiting hs2 07:56 Triage Initiated mlb1 07:59 Patient visited by Fidel Rodriguez RN. mlb1 08:00 Patient moved to I3 / M3 mlb1 09:07 [facility] Kendall [facility] dk1 09:07 Sherman Brooke MD is Attending Physician. dk1 09:08 Patient visited by Yaniv Kendall PA-C. dk1 09:17 Patient moved to Radiology dem1 09:22 Patient moved to I3 / M3 ky 09:32 Patient has correct armband on for positive identification. Bed in low position. Call dls light in reach. 09:49 [facility] Payment Agreement was scanned into [employer] and attached to record. lg 09:50 Patient visited by Liban Acosta. dem1 09:53 Rao wrap to right wrist. dem1 09:54 Patient visited by Liban Acosta. dem1 09:56 Wrist, Complete Returned. EDMS 10:00 Patient moved to TR8 dem1 10:01 No IV's were initiated during this patient's visit. No procedures done that require dls assistance. Administered Medications: 09:28 Drug: Acetaminophen 650 mg [acetaminophen 325 mg tablet (2 tabs)] Route: PO; dls 10:00 Follow up: Response: No significant change. dls Order Results: Radiology Order: Wrist, Complete Test: Wrist, Complete REASON FOR EXAMINATION: Trauma; Clinical: Trauma.; ; Technique: AP, lateral, bilateral oblique views right wrist .; ; Findings: The carpal bones, surrounding osseous structures, soft tissues, and; joint spaces are normal. There is no evidence for acute fracture or dislocation.; No subcutaneous emphysema or radiodense foreign body.; ; Impression:; Normal wrist series. No acute fracture or dislocation; ; ; Signed by; Derrick Lizama MD 04/21/2016 09:24 A; Outcome: 09:45 Discharge ordered by Provider. dk1 10:00 The following High Risk Discharge criteria are identified: None. Discharged to home dls ambulatory. Condition: stable. Discharge instructions given to patient, Instructed on discharge instructions, follow up and referral plans. medication usage, Demonstrated understanding of instructions, medications, Pt was receptive of discharge instructions/ teaching. Prescriptions given X 2, Work note provided to patient. No special radiology studies were completed. 10:01 Discharge Assessment: Patient awake, alert and oriented x 3. No cognitive and/or dls functional deficits noted. Patient verbalized understanding of disposition instructions. patient administered narcotics - no. The following High Risk Discharge criteria are identified: None. Discharged to home ambulatory. Property sent home with patient. 10:02 Patient left the ED. dls Signatures: Dispatcher [employer] EDUT Carolyn Roman RN RN dls Masha Espinosa, Reg Reg lg Fidel Rodriguez RN RN mlb1 Yaniv Kendall PA-C PALg dk1 Ling Walters Demeishia dem1 Jory Graham, Reg Reg hs2 [facility]
--- NOTE | 2016-04-21 10:02 | EDDOCDS ---
Physician Documentation [facility] Name: Fidel Nicole Age: 36 yrs Sex: Male : 1980 Arrival Date: 04/21/2016 Time: 07:18 Bed TR8 Private MD: Disposition: 04/21/16 09:45 Discharged to Home/Self Care. Impression: Contusion of right wrist - skin problem-likely devoping abscess vs contusion. - Condition is Stable. - Discharge Instructions: Abscess. - Prescriptions for Tylenol 325 mg Oral Tablet - take 2 tablet by ORAL route every 6 hours as needed; 1 bottle. Bactrim DS 800- 160 mg Oral Tablet - take 1 tablet by ORAL route every 12 hours for 10 days; 20 tablet. - Medication Reconciliation, Work Release Form - 2 day, Local Pharmacy Hours form. - Follow up: Emergency Department; When: 1 - 2 days; Reason: Recheck today's complaints. - Problem is new. - Symptoms are unchanged. Historical: - Allergies: no known allergies; - Home Meds: 1. lantus insulin 35 units at bedtime 2. metformin 1,000 mg Oral tab 2 times per day 3. Jardiance 10 mg oral tab 1 tab once daily 4. rosuvastatin 10 mg oral tab 1 tab once daily - PMHx: Osteoarthritis; Diabetes - IDDM: controlled; - PSHx: none; - Social history: Smoking status: Patient states was never smoker of tobacco. No barriers to communication noted, The patient speaks fluent Arabic, Speaks appropriately for age. - Family history: Not pertinent. - : The pt / caregiver states he / she is not on anticoagulants. Home medication list is obtained from the patient. - Exposure Risk Screening:: None identified. Vital Signs: 04/21 07:58 BP 118 / 71; Pulse 96; Resp 16; Temp 96.9(T); Pulse Ox 98% on R/A; Weight 110.68 kg / mlb1 244.01 lbs (R); Height 5 ft. 10 in. (177.80 cm); Pain 4/10; 09:49 BP 123 / 81; Pulse 86; Resp 18; Temp 97.5(TE); Pulse Ox 99% on R/A; Pain 0/10; dem1 07:58 Body Mass Index 35.01 (110.68 kg, 177.80 cm) mlb1 MDM: 09:14 Acetaminophen Tablet 650 mg PO once ordered. dk1 09:14 Wrist, Complete Ordered. EDMS 09:31 Financial registration complete. lg 09:46 Rao Wrap ordered. dk1 09:49 [facility] Payment Agreement was scanned into [employer] and attached to record. lg Administered Medications: 09:28 Drug: Acetaminophen 650 mg [acetaminophen 325 mg tablet (2 tabs)] Route: PO; dls 10:00 Follow up: Response: No significant change. dls Signatures: Dispatcher [employer] EDMS Carolyn Roman, RN RN dls Masha Espinosa, Reg Reg lg Fidel Rodriguez RN RN mlb1 Yaniv Kendall, PALg PA-C dk1 The chart was reviewed and I authenticate all verbal orders and agree with the evaluation and treatment provided.Attachments: 09:49 [facility] Payment Agreement lg MTDD
--- NOTE | 2016-04-23 11:03 | EDDOCDS ---
Physician Documentation [facility] Name: Fidel Nicole Age: 36 yrs Sex: Male : 1980 Arrival Date: 04/21/2016 Time: 07:18 Bed TR8 Private MD: Disposition: 04/21/16 09:45 Discharged to Home/Self Care. Impression: Contusion of right wrist - skin problem-likely devoping abscess vs contusion. - Condition is Stable. - Discharge Instructions: Abscess. - Prescriptions for Tylenol 325 mg Oral Tablet - take 2 tablet by ORAL route every 6 hours as needed; 1 bottle. Bactrim DS 800- 160 mg Oral Tablet - take 1 tablet by ORAL route every 12 hours for 10 days; 20 tablet. - Medication Reconciliation, Work Release Form - 2 day, Local Pharmacy Hours form. - Follow up: Emergency Department; When: 1 - 2 days; Reason: Recheck today's complaints. - Problem is new. - Symptoms are unchanged. Historical: - Allergies: no known allergies; - Home Meds: 1. lantus insulin 35 units at bedtime 2. metformin 1,000 mg Oral tab 2 times per day 3. Jardiance 10 mg oral tab 1 tab once daily 4. rosuvastatin 10 mg oral tab 1 tab once daily - PMHx: Osteoarthritis; Diabetes - IDDM: controlled; - PSHx: none; - Social history: Smoking status: Patient states was never smoker of tobacco. No barriers to communication noted, The patient speaks fluent Lithuanian, Speaks appropriately for age. - Family history: Not pertinent. - : The pt / caregiver states he / she is not on anticoagulants. Home medication list is obtained from the patient. - Exposure Risk Screening:: None identified. Vital Signs: 04/21 07:58 BP 118 / 71; Pulse 96; Resp 16; Temp 96.9(T); Pulse Ox 98% on R/A; Weight 110.68 kg / mlb1 244.01 lbs (R); Height 5 ft. 10 in. (177.80 cm); Pain 4/10; 09:49 BP 123 / 81; Pulse 86; Resp 18; Temp 97.5(TE); Pulse Ox 99% on R/A; Pain 0/10; dem1 07:58 Body Mass Index 35.01 (110.68 kg, 177.80 cm) mlb1 MDM: 09:14 Acetaminophen Tablet 650 mg PO once ordered. dk1 09:14 Wrist, Complete Ordered. EDMS 09:31 Financial registration complete. lg 09:46 Rao Wrap ordered. dk1 09:49 [facility] Payment Agreement was scanned into [employer] and attached to record. lg 17:03 T-Sheet-- Draft Copy was scanned into [employer] and attached to record. klr Administered Medications: 09:28 Drug: Acetaminophen 650 mg [acetaminophen 325 mg tablet (2 tabs)] Route: PO; dls 10:00 Follow up: Response: No significant change. dls Signatures: Dispatcher [employer] EDMS Carolyn Roman RN RN dls Masha Espinosa, Joss Reg lg Fidel Rodriguez RN RN mlb1 Yaniv Kendall PA-C PALg dkPhylicia Carl The chart was reviewed and I authenticate all verbal orders and agree with the evaluation and treatment provided.Attachments: 09:49 [facility] Payment Agreement lg 17:03 T-Sheet-- Draft Copy klr Chart Complete MTDD
--- NOTE | 2016-04-23 11:03 | EDDOCDS ---
Nurse's Notes [facility] Name: Fidel Nicole Age: 36 yrs Sex: Male : 1980 Arrival Date: 04/21/2016 Time: 07:18 Bed TR8 Private MD: Diagnosis: Contusion of right wrist-skin problem-likely devoping abscess vs contusion Presentation: 04/21 07:55 Presenting complaint: Patient states: Right wrist/FA pain tenderness and swelling began mlb1 two days ago no known injury. Adult Sepsis Screening: The patient does not have new or worsening altered mentation. Patient's respiratory rate is less than 22. Systolic blood pressure is greater than 100. Patient has a qSOFA score of 0- Negative Sepsis Screen. Suicide/Homicide risk assessment- the patient denies having any suicidal and/or homicidal ideations and does not present with any other emotional, behavioral or mental health complaints. Status: Patient is not a director of clinical services or dependent. Transition of care: patient was not received from another setting of care. 07:55 Acuity: MARIA ISABEL Level 4 mlb1 07:55 Method Of Arrival: Walkin/Carried/Asstd mlb1 Triage Assessment: 07:58 General: Appears in no apparent distress, Behavior is appropriate for age, cooperative. mlb1 Pain: Location: dorsal aspect of right forearm Pain currently is 3 out of 10 on a pain scale. At worst was 10 out of 10 on a pain scale. Aggravated by increased activity. Musculoskeletal: Circulation, motion, and sensation intact Swelling present in dorsal aspect of right forearm. 10:01 HIV screening NA for this visit Offered previously. dls Historical: - Allergies: no known allergies; - Home Meds: 1. lantus insulin 35 units at bedtime 2. metformin 1,000 mg Oral tab 2 times per day 3. Jardiance 10 mg oral tab 1 tab once daily 4. rosuvastatin 10 mg oral tab 1 tab once daily - PMHx: Osteoarthritis; Diabetes - IDDM: controlled; - PSHx: none; - Social history: Smoking status: Patient states was never smoker of tobacco. No barriers to communication noted, The patient speaks fluent Grenadian, Speaks appropriately for age. - Family history: Not pertinent. - : The pt / caregiver states he / she is not on anticoagulants. Home medication list is obtained from the patient. - Exposure Risk Screening:: None identified. Screenin:32 Screening information is obtained from the patient. Primary language is Grenadian. Fall dls risk: No risks identified. Assistance ADL's: requires no assistance with activities of daily living. Abuse/DV Screen: The patient / caregiver reports he/she is: not in a situation that causes fear, pain or injury. Nutritional screening: No deficits noted. Advance Directives: Currently, there is no health care proxy. There is no active DNR order. There is no living will. There is no Power of [employer]. home support is adequate. Assessment: 09:31 General: Appears in no apparent distress, well developed, well nourished, well groomed, dls Behavior is cooperative. Awake, alert, oriented. Skin warm and dry. Moves all extremities. Bilateral breath sounds clear. Respirations unlabored. Abdomen soft, non-tender. No apparent distress. The patient / caregiver is instructed regarding the plan of care and ED course. Vital Signs: 07:58 BP 118 / 71; Pulse 96; Resp 16; Temp 96.9(T); Pulse Ox 98% on R/A; Weight 110.68 kg mlb1 (R); Height 5 ft. 10 in. (177.80 cm); Pain 4/10; 09:49 BP 123 / 81; Pulse 86; Resp 18; Temp 97.5(TE); Pulse Ox 99% on R/A; Pain 0/10; dem1 07:58 Body Mass Index 35.01 (110.68 kg, 177.80 cm) [facility] Vitals: 07:58 Log In Time: April 21, 2016 at 07:19. [facility] ED Course: 07:19 Patient visited by Jory Graham Reg. hs2 07:19 Patient moved to Waiting hs2 07:56 Triage Initiated mlb1 07:59 Patient visited by Fidel Rodriguez RN. mlb1 08:00 Patient moved to I3 / M3 mlb1 09:07 [facility]all [facility] dk1 09:07 Sherman Brooke MD is Attending Physician. dk1 09:08 Patient visited by Yaniv Kendall PA-C. dk1 09:17 Patient moved to Radiology dem1 09:22 Patient moved to I3 / M3 ky 09:32 Patient has correct armband on for positive identification. Bed in low position. Call dls light in reach. 09:49 [facility] Payment Agreement was scanned into [employer] and attached to record. lg 09:50 Patient visited by Liban Acosta. dem1 09:53 Rao wrap to right wrist. dem1 09:54 Patient visited by Liban Acosta. dem1 09:56 Wrist, Complete Returned. EDMS 10:00 Patient moved to TR8 dem1 10:01 No IV's were initiated during this patient's visit. No procedures done that require dls assistance. 17:03 T-Sheet-- Draft Copy was scanned into [employer] and attached to record. klr Administered Medications: 09:28 Drug: Acetaminophen 650 mg [acetaminophen 325 mg tablet (2 tabs)] Route: PO; dls 10:00 Follow up: Response: No significant change. dls Order Results: Radiology Order: Wrist, Complete Test: Wrist, Complete REASON FOR EXAMINATION: Trauma; Clinical: Trauma.; ; Technique: AP, lateral, bilateral oblique views right wrist .; ; Findings: The carpal bones, surrounding osseous structures, soft tissues, and; joint spaces are normal. There is no evidence for acute fracture or dislocation.; No subcutaneous emphysema or radiodense foreign body.; ; Impression:; Normal wrist series. No acute fracture or dislocation; ; ; Signed by; Derrick Lizama MD 04/21/2016 09:24 A; Outcome: 09:45 Discharge ordered by Provider. dk1 10:00 The following High Risk Discharge criteria are identified: None. Discharged to home dls ambulatory. Condition: stable. Discharge instructions given to patient, Instructed on discharge instructions, follow up and referral plans. medication usage, Demonstrated understanding of instructions, medications, Pt was receptive of discharge instructions/ teaching. Prescriptions given X 2, Work note provided to patient. No special radiology studies were completed. 10:01 Discharge Assessment: Patient awake, alert and oriented x 3. No cognitive and/or dls functional deficits noted. Patient verbalized understanding of disposition instructions. patient administered narcotics - no. The following High Risk Discharge criteria are identified: None. Discharged to home ambulatory. Property sent home with patient. 10:02 Patient left the ED. dls Signatures: Dispatcher [employer] EDIL Carolyn Roman RN RN dls Ganter, LoriLee, Joss Coreas Fidel Rodriguez RN RN mlb1 Yaniv Kendall PA-C PA-C dk1 Ling Walters, Liban dem1 Jory Graham, Reg Reg hs2 Phylicia Hernandez Chart Complete MTDD
--- NOTE | 2016-04-23 11:03 | EDDOCDS ---
Physician Documentation [facility] Name: Fidel Nicole Age: 36 yrs Sex: Male : 1980 Arrival Date: 04/21/2016 Time: 07:18 Bed TR8 Private MD: Disposition: 04/21/16 09:45 Discharged to Home/Self Care. Impression: Contusion of right wrist - skin problem-likely devoping abscess vs contusion. - Condition is Stable. - Discharge Instructions: Abscess. - Prescriptions for Tylenol 325 mg Oral Tablet - take 2 tablet by ORAL route every 6 hours as needed; 1 bottle. Bactrim DS 800- 160 mg Oral Tablet - take 1 tablet by ORAL route every 12 hours for 10 days; 20 tablet. - Medication Reconciliation, Work Release Form - 2 day, Local Pharmacy Hours form. - Follow up: Emergency Department; When: 1 - 2 days; Reason: Recheck today's complaints. - Problem is new. - Symptoms are unchanged. Historical: - Allergies: no known allergies; - Home Meds: 1. lantus insulin 35 units at bedtime 2. metformin 1,000 mg Oral tab 2 times per day 3. Jardiance 10 mg oral tab 1 tab once daily 4. rosuvastatin 10 mg oral tab 1 tab once daily - PMHx: Osteoarthritis; Diabetes - IDDM: controlled; - PSHx: none; - Social history: Smoking status: Patient states was never smoker of tobacco. No barriers to communication noted, The patient speaks fluent Mexican, Speaks appropriately for age. - Family history: Not pertinent. - : The pt / caregiver states he / she is not on anticoagulants. Home medication list is obtained from the patient. - Exposure Risk Screening:: None identified. Vital Signs: 04/21 07:58 BP 118 / 71; Pulse 96; Resp 16; Temp 96.9(T); Pulse Ox 98% on R/A; Weight 110.68 kg / mlb1 244.01 lbs (R); Height 5 ft. 10 in. (177.80 cm); Pain 4/10; 09:49 BP 123 / 81; Pulse 86; Resp 18; Temp 97.5(TE); Pulse Ox 99% on R/A; Pain 0/10; dem1 07:58 Body Mass Index 35.01 (110.68 kg, 177.80 cm) mlb1 MDM: 09:14 Acetaminophen Tablet 650 mg PO once ordered. dk1 09:14 Wrist, Complete Ordered. EDMS 09:31 Financial registration complete. lg 09:46 Rao Wrap ordered. dk1 09:49 [facility] Payment Agreement was scanned into [employer] and attached to record. lg 17:03 T-Sheet-- Draft Copy was scanned into [employer] and attached to record. klr Administered Medications: 09:28 Drug: Acetaminophen 650 mg [acetaminophen 325 mg tablet (2 tabs)] Route: PO; dls 10:00 Follow up: Response: No significant change. dls Signatures: Dispatcher [employer] EDMS Carolyn Roman RN RN dls Masha Espinosa, Joss Reg lg Fidel Rodriguez RN RN mlb1 Yaniv Kendall PA-C PALg dkPhylicia Carl The chart was reviewed and I authenticate all verbal orders and agree with the evaluation and treatment provided.Attachments: 09:49 [facility] Payment Agreement lg 17:03 T-Sheet-- Draft Copy klr Chart Complete MTDD
== END 2016-04-21 10:02 | disposition home or self-care (01) ==
LOC: M ED 07:18
DX: L98.9 Disorder of the skin and subcutaneous tissue, unspecified (principal); E10.9 Type 1 diabetes mellitus without complications; M19.90 Unspecified osteoarthritis, unspecified site; Z79.84 Long term (current) use of oral hypoglycemic drugs; Z79.4 Long term (current) use of insulin; Z79.899 Other long term (current) drug therapy

== ENCOUNTER 2016-04-23 10:38 | Emergency (ER) | payer BC ==
--- NOTE | 2016-04-23 12:19 | EDDOCDS ---
Nurse's Notes [facility] Name: Fidel Nicole Age: 36 yrs Sex: Male : 1980 Arrival Date: 04/23/2016 Time: 10:38 Bed TR7 Private MD: Amadou Champion M Diagnosis: Pain in right wrist-tendonitis Presentation: 04/23 10:46 Presenting complaint: Patient states: here for recheck on abscess on right arm. Adult dsf Sepsis Screening: The patient does not have new or worsening altered mentation. Patient's respiratory rate is less than 22. Systolic blood pressure is greater than 100. Patient has a qSOFA score of 0- Negative Sepsis Screen. Suicide/Homicide risk assessment- the patient denies having any suicidal and/or homicidal ideations and does not present with any other emotional, behavioral or mental health complaints. Status: Patient is not a client service professional or dependent. Transition of care: patient was not received from another setting of care. 10:46 Acuity: MARIA ISABEL Level 4 dsf 10:46 Method Of Arrival: Walkin/Carried/Asstd dsf Triage Assessment: 10:48 General: Appears in no apparent distress, Behavior is appropriate for age, cooperative. dsf Pain: Location: right arm Pain currently is 4 out of 10 on a pain scale. Quality of pain is described as sharp. HIV screening NA for this visit Offered previously. Historical: - Allergies: no known allergies; - Home Meds: 1. lantus insulin nightly 35 units at bedtime (Last dose: 04/22/2016) 2. metformin 1,000 mg Oral tab 2 times per day (Last dose: 04/23/2016 08:00) 3. rosuvastatin 10 mg oral tab 1 tab once daily (Last dose: 04/23/2016 08:00) 4. Jardiance 10 mg oral tab 1 tab once daily (Last dose: 04/23/2016 08:00) - PMHx: Diabetes - IDDM: controlled; Osteoarthritis; - PSHx: none; - Social history: Smoking status: Patient states was never smoker of tobacco. No barriers to communication noted, The patient speaks fluent German, Speaks appropriately for age. - Family history: Not pertinent. - : The pt / caregiver states he / she is not on anticoagulants. Home medication list is obtained from the patient. - Exposure Risk Screening:: None identified. Screenin:27 Screening information is obtained from the patient. Fall risk: No risks identified. kpj Assistance ADL's: requires no assistance with activities of daily living. Abuse/DV Screen: The patient / caregiver reports he/she is: not in a situation that causes fear, pain or injury. Nutritional screening: No deficits noted. Advance Directives: Currently, there is no health care proxy. There is no active DNR order. There is no living will. There is no Power of Room Inspector. Advance directive information has not previously been placed in an [facility] medical record. Further advance directive information is declined. home support is adequate. Assessment: 11:27 General: Appears in no apparent distress, Behavior is appropriate for age, pleasant. kpj Pain: Location: dorsal aspect of proximal phalanx of right thumb, dorsal aspect of right wrist, palmar aspect of proximal phalanx of right thumb and palmar aspect of right wrist Pain currently is 4 out of 10 on a pain scale. Neurological: Level of Consciousness is awake, alert, Oriented to person, place, time. Respiratory: Airway is patent Respiratory effort is even, unlabored, Respiratory pattern is regular, symmetrical. Derm: Skin is pink, warm & dry. Musculoskeletal: Circulation, motion, and sensation intact Capillary refill < 3 seconds in right fingers Range of motion intact in all extremities. Reports pain in dorsal aspect of proximal phalanx of right thumb, dorsal aspect of right wrist, palmar aspect of proximal phalanx of right thumb and palmar aspect of right wrist Pain is 4 out of 10 on a pain scale. Vital Signs: 10:39 BP 121 / 78; Pulse 100; Resp 18; Temp 97.9(O); Pulse Ox 98% on R/A; Weight 108.86 kg lr2 (R); Height 6 ft. 0 in. (182.88 cm) (R); Pain 0/10; 10:39 Body Mass Index 32.55 (108.86 kg, 182.88 cm) lr2 Vitals: 10:39 Log In Time: April 23, 2016 at 10:38. lr2 ED Course: 10:39 Patient visited by Evon Conley. lr2 10:39 Patient moved to Waiting lr2 10:41 Amadou Champion is Private Physician. lr2 10:41 Patient moved to Pre RCE lr2 10:47 Triage Initiated dsf 10:49 Patient moved to Triage 1 dsf 11:01 Bernardino Young [facility]-C [facility] cc10 11:01 Sherman Brooke MD is Attending Physician. cc10 11:01 Patient visited by Bernardino Young PA-C. cc10 11:01 Patient visited by Bernardino Young PA-C. cc10 11:12 [facility] is Referral Physician. cc10 11:19 [facility] Payment Agreement was scanned into [employer] and attached to record. lg 11:25 Patient moved to TR7 dsf 11:27 The patient / caregiver is instructed regarding the plan of care and ED course. Patient kpj has correct armband on for positive identification. 11:27 No IV's were initiated during this patient's visit. No procedures done that require kpj assistance. pre formed thumb spica splint applied. Order Results: There are currently no results for this order. Outcome: 11:12 Discharge ordered by Provider. cc10 11:27 Discharge Assessment: Patient awake, alert and oriented x 3. No cognitive and/or kpj functional deficits noted. Patient verbalized understanding of disposition instructions. patient administered narcotics - no. The following High Risk Discharge criteria are identified: None. Discharged to home ambulatory. Condition: stable. No special radiology studies were completed. Property sent home with patient. 12:18 Patient left the ED. [facility] Signatures: Jasmin Kowalski RN RN Masha Bernardo, Joss Reg Maty Gomez RN RN Bernardino Morales PA-C PA-C cc Evon Conley lr2 MTDD
--- NOTE | 2016-04-23 12:19 | EDDOCDS ---
Physician Documentation [facility] Name: Fidel Nicole Age: 36 yrs Sex: Male : 1980 Arrival Date: 04/23/2016 Time: 10:38 Bed TR7 Private MD: Amadou Champion M Disposition: 04/23/16 11:12 Discharged to Home/Self Care. Impression: Pain in right wrist - tendonitis. - Condition is Stable. - Discharge Instructions: Wrist Pain. - Prescriptions for THUMB SPICA SPLINT - apply to affected area 1 application by . route once daily apply to right wrist; 1 Device. Naprosyn 500 mg Oral Tablet - take 1 tablet by ORAL route 2 times per day take with food; 30 tablet. - Medication Reconciliation, Work Release Form - 2 day form. - Follow up: [facility]; When: Call to arrange an appointment; Reason: Wound/Symptom Recheck, Recheck today's complaints, Worsening of conditions, Continuance of care. - Problem is an ongoing problem. - Symptoms are unchanged. Historical: - Allergies: no known allergies; - Home Meds: 1. lantus insulin nightly 35 units at bedtime (Last dose: 04/22/2016) 2. metformin 1,000 mg Oral tab 2 times per day (Last dose: 04/23/2016 08:00) 3. rosuvastatin 10 mg oral tab 1 tab once daily (Last dose: 04/23/2016 08:00) 4. Jardiance 10 mg oral tab 1 tab once daily (Last dose: 04/23/2016 08:00) - PMHx: Diabetes - IDDM: controlled; Osteoarthritis; - PSHx: none; - Social history: Smoking status: Patient states was never smoker of tobacco. No barriers to communication noted, The patient speaks fluent British, Speaks appropriately for age. - Family history: Not pertinent. - : The pt / caregiver states he / she is not on anticoagulants. Home medication list is obtained from the patient. - Exposure Risk Screening:: None identified. Vital Signs: 04/23 10:39 BP 121 / 78; Pulse 100; Resp 18; Temp 97.9(O); Pulse Ox 98% on R/A; Weight 108.86 kg / lr2 240 lbs (R); Height 6 ft. 0 in. (182.88 cm) (R); Pain 0/10; 10:39 Body Mass Index 32.55 (108.86 kg, 182.88 cm) lr2 MDM: 11:03 Financial registration complete. lg 11:19 [facility] Payment Agreement was scanned into [email or web address] and attached to record. lg 11:27 Splint Affected Extremity ordered. cc10 Signatures: Jasmin Kowalski RN RN Masha Choudhury, Joss Reg lg Maty GutierrezRN RN Bernardino Rodriguez, NEGRO PALg cc10 The chart was reviewed and I authenticate all verbal orders and agree with the evaluation and treatment provided.Attachments: 11:19 [facility] Payment Agreement lg MTDD
--- NOTE | 2016-04-25 13:19 | EDDOCDS ---
Physician Documentation [facility] Name: Fidel Nicole Age: 36 yrs Sex: Male : 1980 Arrival Date: 04/23/2016 Time: 10:38 Bed TR7 Private MD: Amadou Champion M Disposition: 04/23/16 11:12 Discharged to Home/Self Care. Impression: Pain in right wrist - tendonitis. - Condition is Stable. - Discharge Instructions: Wrist Pain. - Prescriptions for THUMB SPICA SPLINT - apply to affected area 1 application by . route once daily apply to right wrist; 1 Device. Naprosyn 500 mg Oral Tablet - take 1 tablet by ORAL route 2 times per day take with food; 30 tablet. - Medication Reconciliation, Work Release Form - 2 day form. - Follow up: [facility]; When: Call to arrange an appointment; Reason: Wound/Symptom Recheck, Recheck today's complaints, Worsening of conditions, Continuance of care. - Problem is an ongoing problem. - Symptoms are unchanged. Historical: - Allergies: no known allergies; - Home Meds: 1. lantus insulin nightly 35 units at bedtime (Last dose: 04/22/2016) 2. metformin 1,000 mg Oral tab 2 times per day (Last dose: 04/23/2016 08:00) 3. rosuvastatin 10 mg oral tab 1 tab once daily (Last dose: 04/23/2016 08:00) 4. Jardiance 10 mg oral tab 1 tab once daily (Last dose: 04/23/2016 08:00) - PMHx: Diabetes - IDDM: controlled; Osteoarthritis; - PSHx: none; - Social history: Smoking status: Patient states was never smoker of tobacco. No barriers to communication noted, The patient speaks fluent Faroese, Speaks appropriately for age. - Family history: Not pertinent. - : The pt / caregiver states he / she is not on anticoagulants. Home medication list is obtained from the patient. - Exposure Risk Screening:: None identified. Vital Signs: 04/23 10:39 BP 121 / 78; Pulse 100; Resp 18; Temp 97.9(O); Pulse Ox 98% on R/A; Weight 108.86 kg / lr2 240 lbs (R); Height 6 ft. 0 in. (182.88 cm) (R); Pain 0/10; 10:39 Body Mass Index 32.55 (108.86 kg, 182.88 cm) lr2 MDM: 11:03 Financial registration complete. lg 11:19 COUNT INCLUDES THE [facility] Payment Agreement was scanned into [employer] and attached to record. lg 11:27 Splint Affected Extremity ordered. cc10 Signatures: Jasmin Kowalski RN RN Masha Choudhury, Joss Reg lg Maty GutierrezRN RN Bernardino Rodriguez, NEGRO PALg cc10 The chart was reviewed and I authenticate all verbal orders and agree with the evaluation and treatment provided.Attachments: 11:19 COUNT INCLUDES THE [facility] Payment Agreement lg Chart Complete MTDD
--- NOTE | 2016-04-25 13:19 | EDDOCDS ---
Physician Documentation [facility] Name: Fidel Nicole Age: 36 yrs Sex: Male : 1980 Arrival Date: 04/23/2016 Time: 10:38 Bed TR7 Private MD: Amadou Champion M Disposition: 04/23/16 11:12 Discharged to Home/Self Care. Impression: Pain in right wrist - tendonitis. - Condition is Stable. - Discharge Instructions: Wrist Pain. - Prescriptions for THUMB SPICA SPLINT - apply to affected area 1 application by . route once daily apply to right wrist; 1 Device. Naprosyn 500 mg Oral Tablet - take 1 tablet by ORAL route 2 times per day take with food; 30 tablet. - Medication Reconciliation, Work Release Form - 2 day form. - Follow up: [facility]; When: Call to arrange an appointment; Reason: Wound/Symptom Recheck, Recheck today's complaints, Worsening of conditions, Continuance of care. - Problem is an ongoing problem. - Symptoms are unchanged. Historical: - Allergies: no known allergies; - Home Meds: 1. lantus insulin nightly 35 units at bedtime (Last dose: 04/22/2016) 2. metformin 1,000 mg Oral tab 2 times per day (Last dose: 04/23/2016 08:00) 3. rosuvastatin 10 mg oral tab 1 tab once daily (Last dose: 04/23/2016 08:00) 4. Jardiance 10 mg oral tab 1 tab once daily (Last dose: 04/23/2016 08:00) - PMHx: Diabetes - IDDM: controlled; Osteoarthritis; - PSHx: none; - Social history: Smoking status: Patient states was never smoker of tobacco. No barriers to communication noted, The patient speaks fluent Georgian, Speaks appropriately for age. - Family history: Not pertinent. - : The pt / caregiver states he / she is not on anticoagulants. Home medication list is obtained from the patient. - Exposure Risk Screening:: None identified. Vital Signs: 04/23 10:39 BP 121 / 78; Pulse 100; Resp 18; Temp 97.9(O); Pulse Ox 98% on R/A; Weight 108.86 kg / lr2 240 lbs (R); Height 6 ft. 0 in. (182.88 cm) (R); Pain 0/10; 10:39 Body Mass Index 32.55 (108.86 kg, 182.88 cm) lr2 MDM: 11:03 Financial registration complete. lg 11:19 [facility] Payment Agreement was scanned into [employer] and attached to record. lg 11:27 Splint Affected Extremity ordered. cc10 Signatures: Jasmin Kowalski RN RN Masha Choudhury, Joss Reg lg Maty GutierrezRN RN Bernardino Rodriguez, NEGRO PALg cc10 The chart was reviewed and I authenticate all verbal orders and agree with the evaluation and treatment provided.Attachments: 11:19 [facility] Payment Agreement lg Chart Complete MTDD
--- NOTE | 2016-04-25 13:19 | EDDOCDS ---
Nurse's Notes [facility] Name: Fidel Nicole Age: 36 yrs Sex: Male : 1980 Arrival Date: 04/23/2016 Time: 10:38 Bed TR7 Private MD: Amadou Champion M Diagnosis: Pain in right wrist-tendonitis Presentation: 04/23 10:46 Presenting complaint: Patient states: here for recheck on abscess on right arm. Adult dsf Sepsis Screening: The patient does not have new or worsening altered mentation. Patient's respiratory rate is less than 22. Systolic blood pressure is greater than 100. Patient has a qSOFA score of 0- Negative Sepsis Screen. Suicide/Homicide risk assessment- the patient denies having any suicidal and/or homicidal ideations and does not present with any other emotional, behavioral or mental health complaints. 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 Transition of care: patient was not received from another setting of care. 10:46 Acuity: MARIA ISABEL Level 4 dsf 10:46 Method Of Arrival: Walkin/Carried/Asstd dsf Triage Assessment: 10:48 General: Appears in no apparent distress, Behavior is appropriate for age, cooperative. dsf Pain: Location: right arm Pain currently is 4 out of 10 on a pain scale. Quality of pain is described as sharp. HIV screening NA for this visit Offered previously. Historical: - Allergies: no known allergies; - Home Meds: 1. lantus insulin nightly 35 units at bedtime (Last dose: 04/22/2016) 2. metformin 1,000 mg Oral tab 2 times per day (Last dose: 04/23/2016 08:00) 3. rosuvastatin 10 mg oral tab 1 tab once daily (Last dose: 04/23/2016 08:00) 4. Jardiance 10 mg oral tab 1 tab once daily (Last dose: 04/23/2016 08:00) - PMHx: Diabetes - IDDM: controlled; Osteoarthritis; - PSHx: none; - Social history: Smoking status: Patient states was never smoker of tobacco. No barriers to communication noted, The patient speaks fluent Sinhala, Speaks appropriately for age. - Family history: Not pertinent. - : The pt / caregiver states he / she is not on anticoagulants. Home medication list is obtained from the patient. - Exposure Risk Screening:: None identified. Screenin:27 Screening information is obtained from the patient. Fall risk: No risks identified. kpj Assistance ADL's: requires no assistance with activities of daily living. Abuse/DV Screen: The patient / caregiver reports he/she is: not in a situation that causes fear, pain or injury. Nutritional screening: No deficits noted. Advance Directives: Currently, there is no health care proxy. There is no active DNR order. There is no living will. There is no Power of Registered Nurse Obstetrics. Advance directive information has not previously been placed in an [facility] medical record. Further advance directive information is declined. home support is adequate. Assessment: 11:27 General: Appears in no apparent distress, Behavior is appropriate for age, pleasant. kpj Pain: Location: dorsal aspect of proximal phalanx of right thumb, dorsal aspect of right wrist, palmar aspect of proximal phalanx of right thumb and palmar aspect of right wrist Pain currently is 4 out of 10 on a pain scale. Neurological: Level of Consciousness is awake, alert, Oriented to person, place, time. Respiratory: Airway is patent Respiratory effort is even, unlabored, Respiratory pattern is regular, symmetrical. Derm: Skin is pink, warm & dry. Musculoskeletal: Circulation, motion, and sensation intact Capillary refill < 3 seconds in right fingers Range of motion intact in all extremities. Reports pain in dorsal aspect of proximal phalanx of right thumb, dorsal aspect of right wrist, palmar aspect of proximal phalanx of right thumb and palmar aspect of right wrist Pain is 4 out of 10 on a pain scale. Vital Signs: 10:39 BP 121 / 78; Pulse 100; Resp 18; Temp 97.9(O); Pulse Ox 98% on R/A; Weight 108.86 kg lr2 (R); Height 6 ft. 0 in. (182.88 cm) (R); Pain 0/10; 10:39 Body Mass Index 32.55 (108.86 kg, 182.88 cm) lr2 Vitals: 10:39 Log In Time: April 23, 2016 at 10:38. lr2 ED Course: 10:39 Patient visited by Evon Conley. lr2 10:39 Patient moved to Waiting lr2 10:41 Amadou Champion is Private Physician. lr2 10:41 Patient moved to Pre RCE lr2 10:47 Triage Initiated dsf 10:49 Patient moved to Triage 1 dsf 11:01 [facility] cc10 11:01 Sherman Brooke MD is Attending Physician. cc10 11:01 Patient visited by Bernardino Young PA-C. cc10 11:01 Patient visited by Bernardino Young PA-C. cc10 11:12 [facility] is Referral Physician. cc10 11:19 [facility] Payment Agreement was scanned into [employer] and attached to record. lg 11:25 Patient moved to TR7 dsf 11:27 The patient / caregiver is instructed regarding the plan of care and ED course. Patient kpj has correct armband on for positive identification. 11:27 No IV's were initiated during this patient's visit. No procedures done that require kpj assistance. pre formed thumb spica splint applied. Order Results: There are currently no results for this order. Outcome: 11:12 Discharge ordered by Provider. cc10 11:27 Discharge Assessment: Patient awake, alert and oriented x 3. No cognitive and/or kpj functional deficits noted. Patient verbalized understanding of disposition instructions. patient administered narcotics - no. The following High Risk Discharge criteria are identified: None. Discharged to home ambulatory. Condition: stable. No special radiology studies were completed. Property sent home with patient. 12:18 Patient left the ED. j Signatures: Jasmin Kowalski RN RN Masha Bernardo, Reg Reg Maty Gomez RN RN Bernardino Morales PA-C PA-C cc Evon Conley lr2 Chart Complete MTDD
== END 2016-04-23 12:18 | disposition home or self-care (01) ==
LOC: M ED 10:38
DX: M65.831 Other synovitis and tenosynovitis, right forearm (principal); E10.9 Type 1 diabetes mellitus without complications; M19.90 Unspecified osteoarthritis, unspecified site; Z79.4 Long term (current) use of insulin; Z79.899 Other long term (current) drug therapy

== ENCOUNTER → 2016-07-12 | Outpatient (REF) | payer BC ==
[2016-07-12 12:32] LABS: ALBUMIN 4.3 GM/DL (3.2-5.2); ALBUMIN/GLOBULIN RATIO 1.26 (1.00-1.93); ALKALINE PHOSPHATASE 71 U/L (45-117); ALT/SGPT 29 U/L (12-78); ANION GAP 7 MEQ/L (8-16); AST/SGOT 14 U/L (15-37); BILIRUBIN,TOTAL 0.8 MG/DL (0.2-1.0); BLOOD UREA NITROGEN 15 MG/DL (7-18); CALCIUM LEVEL 9.2 MG/DL (8.5-10.1); CARBON DIOXIDE LEVEL 31 MEQ/L (21-32); CHLORIDE LEVEL 105 MEQ/L (98-107); CREATININE FOR GFR 0.86 MG/DL (0.70-1.30); GLOMERULAR FILTRATION RATE > 60.0 (>60); GLUCOSE, FASTING 97 MG/DL (70-105); POTASSIUM SERUM 4.6 MEQ/L (3.5-5.1); SODIUM LEVEL 143 MEQ/L (136-145); TOTAL PROTEIN 7.7 GM/DL (6.4-8.2)
== END ==
LOC: M SFHCPLAZ 10:07
PROVIDERS: ATTEND Physician Assistant
DX: E11.9 Type 2 diabetes mellitus without complications (principal)

== ENCOUNTER 2016-08-23 07:30 | Emergency (ER) | payer OTHER, BC ==
[~2016-08-23] VITALS: Ht 182.9 cm; Wt 104.5 kg
[2016-08-23] MEDS ORDERED: LANTINJ4 SUBQ (07:58)
[2016-08-23] MEDS ORDERED: JARD1TAB3 PO (07:58)
[2016-08-23] MEDS ORDERED: ROSU10TA2 PO (07:58)
[2016-08-23] MEDS ORDERED: METF10004 PO (07:58)
[2016-08-23] MEDS ORDERED: NORCO, ANEXSIA 5/325MG TABLET (HYDROcodone/ACETAMINOPHEN) PO ONE (08:15)
--- NOTE | 2016-08-23 09:16 | REP ---
Left knee five views: Comparison 03/09/2019 17. There is no fracture or dislocation. There is no hemarthrosis. Mineralization joint spaces are normal. Hypertrophic calcification of the tibial tubercle is again noted as a degenerative change, unchanged. Impression: Essentially negative left knee except for chronic hypertrophic calcification at the tibial tubercle. Signed by Maycol Hammond MD 08/23/2016 08:56 A
[2016-08-23] MEDS ORDERED: NORCOTAB PO (09:27)
[2016-08-23] MEDS ORDERED: ZOFR4TAB3 PO (10:13)
[2016-08-23] MEDS ORDERED: ONDANSETRON 4 MG ORAL DISINTEGRATING TAB (S0181) PO ONE (10:15)
[2016-08-23 10:32] VITALS: BP 122/76
== END 2016-08-23 10:33 | disposition home or self-care (01) ==
LOC: M ED 07:30
DX: M17.12 Unilateral primary osteoarthritis, left knee (principal); X50.9XXA Other and unspecified overexertion or strenuous movements or postures, initial encounter; Y92.513 Shop (commercial) as the place of occurrence of the external cause; Y93.89 Activity, other specified; Y99.0 Civilian activity done for income or pay; E11.9 Type 2 diabetes mellitus without complications; Z79.4 Long term (current) use of insulin; Z79.899 Other long term (current) drug therapy; Z88.6 Allergy status to analgesic agent

== ENCOUNTER → 2016-10-05 | Outpatient (REF) | payer BC ==
[~2016-10-05] MED LIST: JARD1TAB3 PO; LANTINJ4 SUBQ; METF10004 PO; NORCOTAB PO; ROSU10TA2 PO; ZOFR4TAB3 PO
[2016-10-05 14:32] LABS: ALBUMIN 4.3 GM/DL (3.2-5.2); ALBUMIN/GLOBULIN RATIO 1.34 (1.00-1.93); ALKALINE PHOSPHATASE 70 U/L (45-117); ALT/SGPT 23 U/L (12-78); ANION GAP 11 MEQ/L (8-16); AST/SGOT 11 U/L (15-37); BILIRUBIN,TOTAL 0.7 MG/DL (0.2-1.0); BLOOD UREA NITROGEN 17 MG/DL (7-18); CARBON DIOXIDE LEVEL 27 MEQ/L (21-32); CHLORIDE LEVEL 103 MEQ/L (98-107); CREATININE FOR GFR 0.71 MG/DL (0.70-1.30); GLOMERULAR FILTRATION RATE > 60.0 (>60); GLUCOSE, FASTING 51 MG/DL (70-105); POTASSIUM SERUM 3.5 MEQ/L (3.5-5.1); SODIUM LEVEL 141 MEQ/L (136-145); TOTAL PROTEIN 7.5 GM/DL (6.4-8.2)
== END ==
LOC: M SFHCPLAZ 09:31
PROVIDERS: ATTEND Physician Assistant
DX: E11.9 Type 2 diabetes mellitus without complications (principal)

== ENCOUNTER → 2017-01-03 | Outpatient (REF) | payer BC ==
[2017-01-03 12:15] LABS: ALBUMIN 3.9 GM/DL (3.2-5.2); ALBUMIN/GLOBULIN RATIO 1.15 (1.00-1.93); ALKALINE PHOSPHATASE 82 U/L (45-117); ALT/SGPT 23 U/L (12-78); ANION GAP 6 MEQ/L (8-16); AST/SGOT 12 U/L (7-37); BILIRUBIN,TOTAL 0.8 MG/DL (0.2-1.0); BLOOD UREA NITROGEN 10 MG/DL (7-18); CALCIUM LEVEL 9.1 MG/DL (8.5-10.1); CARBON DIOXIDE LEVEL 32 MEQ/L (21-32); CHLORIDE LEVEL 103 MEQ/L (98-107); CREATININE FOR GFR 0.69 MG/DL (0.70-1.30); GLOMERULAR FILTRATION RATE > 60.0 (>60); GLUCOSE, FASTING 157 MG/DL (70-105); POTASSIUM SERUM 4.6 MEQ/L (3.5-5.1); SODIUM LEVEL 141 MEQ/L (136-145); TOTAL PROTEIN 7.3 GM/DL (6.4-8.2)
== END ==
LOC: M SFHCPLAZ 08:37
PROVIDERS: ATTEND Physician Assistant
DX: E11.9 Type 2 diabetes mellitus without complications (principal)

== ENCOUNTER 2017-01-12 21:50 | Emergency (ER) | payer BC ==
[~2017-01-12] VITALS: Ht 175.3 cm; Wt 104.5 kg
[2017-01-12] MEDS ORDERED: AUGM875T28 PO (23:39)
[2017-01-12 23:51] VITALS: BP 138/90
== END 2017-01-12 23:51 | disposition home or self-care (01) ==
LOC: M ED 21:50
DX: J01.90 Acute sinusitis, unspecified (principal); E11.9 Type 2 diabetes mellitus without complications; Z79.4 Long term (current) use of insulin; Z88.6 Allergy status to analgesic agent

== ENCOUNTER → 2017-08-15 | Outpatient (REF) | payer BC ==
[2017-08-15 12:21] LABS: MALB URINE SIEMENS 11.5 MG/L; MAU/CREAT RATIO 10.2 MCG/MG (0.0-30.0)
[2017-08-15 12:29] LABS: ANION GAP 9 MEQ/L (8-16); BLOOD UREA NITROGEN 21 MG/DL (7-18); CALCIUM LEVEL 9.1 MG/DL (8.5-10.1); CARBON DIOXIDE LEVEL 29 MEQ/L (21-32); CHLORIDE LEVEL 104 MEQ/L (98-107); CHOLESTEROL LEVEL 172 MG/DL (<200); CREATININE FOR GFR 0.82 MG/DL (0.70-1.30); GLOMERULAR FILTRATION RATE > 60.0 (>60); GLUCOSE, FASTING 184 MG/DL (70-100); HDL CHOLESTEROL 43 MG/DL (>40); LDL CHOLESTEROL 109.4 MG/DL (<100); NON-HDL-C 129 MG/DL; POTASSIUM SERUM 4.5 MEQ/L (3.5-5.1); SODIUM LEVEL 142 MEQ/L (136-145); TRIGLYCERIDES LEVEL 98 MG/DL (<150)
[2017-08-15 12:54] LABS: ESTIMATED AVERAGE GLUCOSE 200 MG/DL (60-110); HEMOGLOBIN A1c 8.6 %
== END ==
LOC: M SFHCPLAZ 08:05
DX: E11.9 Type 2 diabetes mellitus without complications (principal)
CPT/HCPCS: 83036

== ENCOUNTER → 2018-12-09 | Outpatient (CLI) | payer BC ==
[~2018-12-09] MED LIST changes: +AUGM875T28 PO; +HYDR-3715 PO; -NORCOTAB PO; -ROSU10TA2 PO; +ROSU10TA6 PO; +ZOFR4TAB14 PO; -ZOFR4TAB3 PO
--- NOTE | 2018-12-09 14:40 | REP ---
REASON: Foot pain. Status post trauma 2 weeks ago. COMPARISON: None. FINDINGS: The joint spaces are symmetric and relatively well maintained. There is no evidence of acute fracture or destructive osseous lesion. IMPRESSION: Negative. Electronically Signed by Víctor Lu DO 12/09/2018 03:48 P
--- NOTE | 2018-12-09 14:58 | REP ---
ANKLE: REASON: Pain after stepping a hole. COMPARISON: No priors. FINDINGS: No acute fracture or destructive osseous lesion. The mortise is intact. Electronically Signed by Víctor Lu DO 12/09/2018 03:48 P
== END ==
LOC: M LRY 14:14
PROVIDERS: ATTEND Physician Assistant
DX: M25.572 Pain in left ankle and joints of left foot (principal); M79.672 Pain in left foot

== ENCOUNTER → 2019-01-20 | Outpatient (REF) | payer BC ==
[2019-01-20 16:39] LABS: HEMOGLOBIN A1c 11.5 %
[2019-01-20 16:54] LABS: CREATININE, URINE 25.6 MG/DL; MALB URINE SIEMENS 13.9 MG/L; MAU/CREAT RATIO 54.2 MCG/MG (0.0-30.0)
[2019-01-20 17:11] LABS: ALBUMIN 3.8 GM/DL (3.2-5.2); ALT/SGPT 35 U/L (12-78); BILIRUBIN,TOTAL 0.4 MG/DL (0.2-1.0); BLOOD UREA NITROGEN 17 MG/DL (7-18); CALCIUM LEVEL 9.1 MG/DL (8.5-10.1); CARBON DIOXIDE LEVEL 28 MEQ/L (21-32); CHLORIDE LEVEL 96 MEQ/L (98-107); CHOLESTEROL LEVEL 227 MG/DL (<200); CHOLESTEROL RISK RATIO 5.973 (<5); FREE T4 0.96 NG/DL (0.76-1.46); GLOMERULAR FILTRATION RATE > 60.0 (>60); GLUCOSE, FASTING 543 MG/DL (70-100); HDL CHOLESTEROL 38 MG/DL (>40); LDL CHOLESTEROL 124 MG/DL (<100); NON-HDL-C 189 MG/DL; POTASSIUM SERUM 4.3 MEQ/L (3.5-5.1); SODIUM LEVEL 133 MEQ/L (136-145); TOTAL PROTEIN 7.5 GM/DL (6.4-8.2); TRIGLYCERIDES LEVEL 323 MG/DL (<150)
== END ==
LOC: M SFHCPLAZ 13:59
PROVIDERS: ATTEND Physician Assistant
DX: E11.9 Type 2 diabetes mellitus without complications (principal); E78.5 Hyperlipidemia, unspecified

== ENCOUNTER 2019-03-05 04:30 | Emergency (ER) | payer BC ==
[~2019-03-05] VITALS: Ht 182.9 cm; Wt 120.3 kg
[2019-03-05] MEDS ORDERED: valACYclovir HCL 500 MG TAB PO ONE (05:45)
[2019-03-05] MEDS ORDERED: ZIRG0.152 OS (06:04)
[2019-03-05] MEDS ORDERED: VALA1TAB64 PO (06:04)
[2019-03-05 06:20] VITALS: BP 139/78
== END 2019-03-05 06:21 | disposition home or self-care (01) ==
LOC: M ED 04:30
DX: B02.39 Other herpes zoster eye disease (principal); Z88.8 Allergy status to other drugs, medicaments and biological substances

== ENCOUNTER 2019-05-30 22:04 | Emergency (ER) | payer BC ==
[~2019-05-30] VITALS: Ht 182.9 cm; Wt 117.3 kg
[2019-05-30 22:04] VITALS: BP 131/85
[~2019-05-30 22:04] MED LIST changes: +VALA1TAB5 PO; +ZIRG0.152 OS
[2019-05-30] MEDS ORDERED: METF10004 (22:11)
[2019-05-30] MEDS ORDERED: NS 1,000 ML IV ONE (22:45)
[2019-05-30 23:07] LABS: BASO % 0.3 % (0.0-1.0); EOS % 0.2 % (0.0-3.0); HEMOGLOBIN 17.9 g/dl (13.5-17.5); LYMPH # 1.2 10^3/uL (1.5-5.0); LYMPH % 8.3 % (24.0-44.0); MEAN CORPUSCULAR HEMOGLOBIN 29.9 pg (27.0-33.0); MEAN CORPUSCULAR HGB CONC 33.8 g/dl (32.0-36.5); MEAN CORPUSCULAR VOLUME 88.5 fl (80.0-96.0); MONO # 1.1 10^3/uL (0.0-0.8); MONO % 7.3 % (0.0-5.0); NEUTROPHILS % 83.3 % (36.0-66.0); PLATELET COUNT, AUTOMATED 426 10^3/uL (150-450); RED BLOOD COUNT 5.99 10^6/uL (4.30-6.10); WHITE BLOOD COUNT 14.4 10^3/uL (4.0-10.0)
[2019-05-30] MEDS ORDERED: CLINDAMYCIN 900 MG in IV 1 EA IV ONE (23:15)
[2019-05-30 23:25] LABS: ERYTHROCYTE SEDIMENTATION RATE 3 mm/hr (0-15)
[2019-05-30 23:36] LABS: ALBUMIN 3.4 GM/DL (3.2-5.2); ALT/SGPT 19 U/L (12-78); BILIRUBIN,TOTAL 0.8 MG/DL (0.2-1.0); BLOOD UREA NITROGEN 12 MG/DL (7-18); C REACTIVE PROTEIN QUANTITATIV 8.31 MG/DL (0.00-0.30); CALCIUM LEVEL 8.9 MG/DL (8.5-10.1); CARBON DIOXIDE LEVEL 27 MEQ/L (21-32); CHLORIDE LEVEL 101 MEQ/L (98-107); CREATININE FOR GFR 0.91 MG/DL (0.70-1.30); GLOMERULAR FILTRATION RATE > 60.0 (>60); GLUCOSE, FASTING 279 MG/DL (70-100); POTASSIUM SERUM 4.4 MEQ/L (3.5-5.1); SODIUM LEVEL 133 MEQ/L (136-145); TOTAL PROTEIN 7.5 GM/DL (6.4-8.2)
[2019-05-30] MEDS ORDERED: ISOVUE-370 76% 100ML VIAL (Q9967) As Ordered ONE (23:39)
--- NOTE | 2019-05-31 00:17 | REPVR ---
PROCEDURE INFORMATION: Exam: CT Pelvis With Contrast Exam date and time: 05/30/2019 11:51 PM Age: 39 years old Clinical indication: Mass, lump, or swelling; Lower quadrant, right and other: Groin; Additional info: Large firm area right groin TECHNIQUE: Imaging protocol: Computed tomography images of the pelvis with intravenous contrast. Radiation optimization: All CT scans at this facility use at least one of these dose optimization techniques: automated exposure control; mA and/or kV adjustment per patient size (includes targeted exams where dose is matched to clinical indication); or iterative reconstruction. Contrast material: ISOVUE 370; Contrast volume: 100 ml; Contrast route: IV; COMPARISON: CT ABD PELVIS W/O CONTRAST 11/27/2015 1:06 AM FINDINGS: Stomach and bowel: Visualized small bowel and colon are unremarkable. Appendix: A normal appendix is seen. Intraperitoneal space: Unremarkable. No free air. No significant fluid collection. Lymph nodes: Right inguinal and distal external iliac nodes are noted and slightly larger on the right compared to the left but probably upper normal with fatty kusum. Bladder: Normal. No mass. Reproductive: Normal as visualized. Bones/joints: Unremarkable. No acute fracture. No dislocation. Soft tissues: Subcutaneous induration with rounded area of confluence along the lateral aspect of the right inguinal crease measuring approximately 3 cm in diameter. No central fluid collection or defined wall is evident. IMPRESSION: 1. Right inguinal subcutaneous induration with rounded area of subcutaneous confluence beneath the skin in the lateral aspect of the right inguinal crease with no definite central abscess and may reflect inflammatory consolidation or phlegmon. 2. Upper normal right inguinal and external iliac nodes. 3. Otherwise negative CT pelvis. Electronically signed by: Osmel Mcallister On 05/31/2019 00:16:53 AM
[2019-05-31] MEDS ORDERED: CLEO300C2 PO (00:28)
[2019-05-31] MEDS ORDERED: CLEO150C PO (00:28)
--- NOTE | 2019-06-01 14:37 | ED PDOC ---
Post-Departure Follow-Up dr kyle and zara dias faxed formal report of ct pelvis for fu Marcia Sparrow MD Jun 01, 2019 14:37
== END 2019-05-31 00:53 | disposition home or self-care (01) ==
LOC: M ED 22:04
DX: L03.314 Cellulitis of groin (principal); E11.9 Type 2 diabetes mellitus without complications; E78.5 Hyperlipidemia, unspecified; Z79.4 Long term (current) use of insulin
CPT/HCPCS: 72193; 80053; 83605; 85025; 85652; 86140; 87040; 96365; 99283; Q9967

== ENCOUNTER → 2019-06-25 | Outpatient (REF) | payer BC ==
[~2019-06-25] MED LIST changes: +CLEO150C PO; +CLEO300C2 PO; +METF10004
[2019-06-25 16:04] LABS: HEMOGLOBIN A1c 12.4 %
[2019-06-25 16:16] LABS: ALT/SGPT 45 U/L (12-78); BILIRUBIN,TOTAL 0.6 MG/DL (0.2-1.0); BLOOD UREA NITROGEN 22 MG/DL (7-18); CALCIUM LEVEL 9.5 MG/DL (8.5-10.1); CARBON DIOXIDE LEVEL 26 MEQ/L (21-32); CHLORIDE LEVEL 95 MEQ/L (98-107); CREATININE FOR GFR 1.01 MG/DL (0.70-1.30); GLOMERULAR FILTRATION RATE > 60.0 (>60); GLUCOSE, FASTING 495 MG/DL (70-100); POTASSIUM SERUM 4.7 MEQ/L (3.5-5.1); SODIUM LEVEL 130 MEQ/L (136-145); TOTAL PROTEIN 7.9 GM/DL (6.4-8.2)
== END ==
LOC: M SFHCPLAZ 14:36
PROVIDERS: ATTEND Physician Assistant
DX: E11.9 Type 2 diabetes mellitus without complications (principal)

== ENCOUNTER 2020-02-22 10:47 | Emergency (ER) | payer BC ==
[~2020-02-22] VITALS: Ht 175.3 cm; Wt 114.0 kg
[2020-02-22] MEDS ORDERED: ONDANSETRON 4MG/2ML VIAL IV ONE (12:00)
[2020-02-22] MEDS ORDERED: NS 1,000 ML IV ONE (12:00)
[2020-02-22 12:14] LABS: BASO # 0.1 10^3/uL (0.0-0.2); BASO % 0.5 % (0.0-1.0); EOS # 0.1 10^3/uL (0.0-0.5); EOS % 0.4 % (0.0-3.0); HEMATOCRIT 49.9 % (42.0-52.0); LYMPH # 1.9 10^3/uL (1.5-5.0); LYMPH % 12.5 % (24.0-44.0); MEAN CORPUSCULAR HEMOGLOBIN 29.9 pg (27.0-33.0); MEAN CORPUSCULAR HGB CONC 34.1 g/dl (32.0-36.5); MEAN CORPUSCULAR VOLUME 87.7 fl (80.0-96.0); MONO # 1.1 10^3/uL (0.0-0.8); MONO % 7.1 % (0.0-5.0); NEUTROPHILS # 12.1 10^3/uL (1.5-8.5); NEUTROPHILS % 78.9 % (36.0-66.0); PLATELET COUNT, AUTOMATED 359 10^3/uL (150-450); RED BLOOD COUNT 5.69 10^6/uL (4.30-6.10); WHITE BLOOD COUNT 15.3 10^3/uL (4.0-10.0)
[2020-02-22 13:01] LABS: ALBUMIN 3.9 GM/DL (3.2-5.2); ALT/SGPT 31 U/L (12-78); BILIRUBIN,DIRECT 0.1 MG/DL (0.0-0.2); BILIRUBIN,TOTAL 0.5 MG/DL (0.2-1.0); BLOOD UREA NITROGEN 17 MG/DL (7-18); CALCIUM LEVEL 9.2 MG/DL (8.5-10.1); CARBON DIOXIDE LEVEL 27 MEQ/L (21-32); CHLORIDE LEVEL 96 MEQ/L (98-107); CK-MB VALUE MASS 1.9 NG/ML (<3.6); CPK CREATINE PHOSPHOKINASE 128 U/L (39-308); GLOMERULAR FILTRATION RATE > 60.0 (>60); GLUCOSE, FASTING 543 MG/DL (70-100); LIPASE 113 U/L (73-393); MAGNESIUM LEVEL 2.2 MG/DL (1.8-2.4); MB/CK RELATIVE INDEX 1.48 (< OR =4); POTASSIUM SERUM 4.8 MEQ/L (3.5-5.1); SODIUM LEVEL 133 MEQ/L (136-145); TOTAL PROTEIN 7.5 GM/DL (6.4-8.2); TROPONIN I < 0.02 NG/ML (< 0.10)
[2020-02-22] MEDS ORDERED: ISOVUE-370 76% 100ML VIAL As Ordered ONE (13:10)
[2020-02-22] MEDS ORDERED: HumuLIN R (REGULAR) INSULIN (NovoLIN R) **100U/ML** PER UNIT IV ONE (13:30)
--- NOTE | 2020-02-22 13:35 | REP ---
INDICATION: abd pain w/ n/v/d . COMPARISON: Comparison CT studies are dated May 30, 2019 and November 27, 2015.. TECHNIQUE: Helical scanning was acquired and 4 mm axial images are re-formatted. Coronal and sagittal MPR images were generated and reviewed. The contrast enhancement dose is 100 mL of intravenous Isovue 370. 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 There is a normal bowel gas pattern. Axial CT images demonstrate that the lung bases are clear. There is minimal diffuse fatty infiltration of the liver. No focal liver lesion is appreciated. Gallbladder and pancreas are unremarkable. Normal adrenal glands are observed bilaterally. No splenic abnormality is seen. The kidneys enhance symmetrically and are morphologically intact. No retroperitoneal mass or adenopathy is seen. Small and large intestinal bowel loops are normal in the abdomen and pelvis. A normal appendix is visible in the right lower quadrant. Seminal vesicles, prostate, and urinary bladder are unremarkable. No abdominal wall defect is seen. Bone window settings show no bony destructive lesion. IMPRESSION: No significant abnormality noted. Mild diffuse fatty infiltration of the liver. Normal appendix seen. Otherwise negative. <Electronically signed by Vladimir Roche > 02/22/20 [id number]
[2020-02-22] MEDS ORDERED: NS 2,420 ML in IV 1 EA IV ONE (14:00)
[2020-02-22 14:18] LABS: ACETONE/KETONE 2.35 MG/DL (<2.81); PHOSPHORUS LEVEL 4.3 MG/DL (2.5-4.9)
[2020-02-22 14:45] LABS: HEMOGLOBIN A1c 12.2 %
[2020-02-22 14:50] LABS: OSMOLALITY SERUM 309 MOSM/KG (275-295)
[2020-02-22 16:16] LABS: VENOUS BASE EXCESS -1.8 (-2.0-2.0); VENOUS HCO3 24.5 MEQ/L (23.0-27.0); VENOUS O2 SATURATION 96.7 % (60.0-80.0); VENOUS PARTIAL PRESSURE O2 85.2 mmHg (30.0-50.0); VENOUS PH 7.335 UNITS (7.330-7.430); VENOUS TOTAL CO2 25.9 MEQ/L (24.0-28.0)
[2020-02-22 16:43] VITALS: BP 127/69
[2020-02-22 16:47] LABS: RSV AMPLIFICATION NEGATIVE (NEGATIVE)
[2020-02-22] MEDS ORDERED: ONDA4TAB6 PO (17:06)
--- NOTE | 2020-02-23 06:39 | ECGEPIP ---
[facility] - ED Test Date: 2020-02-22 Pat Name: COLT HERNANDEZ Department: Room: - Gender: Male Public Health Doctor: JAELYN : 1980 Requested By: JAYSON FERNANDEZ Order Number: [id number] Reading MD: Aleks Mireles Measurements Intervals Doran Rate: 88 P: 50 RI: 167 QRS: 56 QRSD: 90 T: 30 QT: 333 QTc: 405 Interpretive Statements SINUS RHYTHM POOR R WAVE PROGRESSION NO PRIORS FOR COMPARISON Electronically Signed on 02-23-2020 6:39:29 EST by Aleks Mireles
== END 2020-02-22 17:45 | disposition home or self-care (01) ==
LOC: M ED 10:47
DX: R11.2 Nausea with vomiting, unspecified (principal); K76.0 Fatty (change of) liver, not elsewhere classified; E11.9 Type 2 diabetes mellitus without complications; E78.5 Hyperlipidemia, unspecified; Z79.4 Long term (current) use of insulin
CPT/HCPCS: 36415; 74177; 80048; 80076; 82010; 82550; 82553; 82803; 83036; 83605; 83690; 83735; 83930; 84100; 84484; 85025; 87631; 93005; 96361; 96374; 96375; 99284; J2405; Q9967

== ENCOUNTER → 2020-03-23 | Outpatient (CLI) | payer SELFPAY ==
[~2020-03-23] MED LIST changes: +ONDA4TAB6 PO
== END ==
LOC: M LABSMTC 14:26
PROVIDERS: ATTEND Pediatrics
DX: Z20.822 Contact with and (suspected) exposure to COVID-19 (principal)

== ENCOUNTER → 2020-05-16 | Outpatient (REF) | payer BC ==
[2020-05-16 12:54] LABS: ALBUMIN 3.7 GM/DL (3.2-5.2); ALT/SGPT 29 U/L (12-78); BILIRUBIN,TOTAL 0.4 MG/DL (0.2-1.0); BLOOD UREA NITROGEN 18 MG/DL (7-18); CALCIUM LEVEL 8.6 MG/DL (8.5-10.1); CARBON DIOXIDE LEVEL 29 MEQ/L (21-32); CHLORIDE LEVEL 105 MEQ/L (98-107); CHOLESTEROL LEVEL 198 MG/DL (<200); CHOLESTEROL RISK RATIO 4.714 (<5); CREATININE FOR GFR 0.95 MG/DL (0.70-1.30); GLOMERULAR FILTRATION RATE > 60.0 (>60); GLUCOSE, FASTING 292 MG/DL (70-100); HDL CHOLESTEROL 42 MG/DL (>40); LDL CHOLESTEROL 99 MG/DL (<100); NON-HDL-C 156 MG/DL; POTASSIUM SERUM 4.5 MEQ/L (3.5-5.1); SODIUM LEVEL 137 MEQ/L (136-145); TOTAL PROTEIN 7.2 GM/DL (6.4-8.2); TRIGLYCERIDES LEVEL 285 MG/DL (<150)
[2020-05-16 13:22] LABS: CREATININE, URINE 61.5 MG/DL; MALB URINE SIEMENS 40.5 MG/L; MAU/CREAT RATIO 65.8 MCG/MG (0.0-30.0)
[2020-05-16 15:37] LABS: HEMOGLOBIN A1c 11.7 %
== END ==
LOC: M SFHCPLAZ 08:13
PROVIDERS: ATTEND Physician Assistant
DX: E11.65 Type 2 diabetes mellitus with hyperglycemia (principal); E78.5 Hyperlipidemia, unspecified

== ENCOUNTER → 2020-06-19 | Outpatient (CLI) | payer BC ==
--- NOTE | 2020-06-19 13:31 | REP ---
INDICATION: PAIN IN RIGHT WRIST COMPARISON: None. TECHNIQUE: AP, lateral, bilateral oblique views right wrist. FINDINGS: The carpal bones, surrounding osseous structures, soft tissues, and joint spaces are normal. There is no evidence for acute fracture or dislocation. No subcutaneous emphysema or radiodense foreign body. IMPRESSION: Normal wrist series. No acute fracture or dislocation. <Electronically signed by Derrick Lizama > 06/19/20 [id number]
== END ==
LOC: M LAB 13:12
PROVIDERS: ATTEND Physician Assistant
DX: M25.531 Pain in right wrist (principal)

== ENCOUNTER → 2020-08-16 | Outpatient (REF) | payer BC ==
[2020-08-16 10:03] LABS: BLOOD UREA NITROGEN 18 MG/DL (7-18); CALCIUM LEVEL 9.8 MG/DL (8.5-10.1); CARBON DIOXIDE LEVEL 25 MEQ/L (21-32); CHLORIDE LEVEL 99 MEQ/L (98-107); CREATININE FOR GFR 0.85 MG/DL (0.70-1.30); GLOMERULAR FILTRATION RATE > 60.0 (>60); GLUCOSE, FASTING 342 MG/DL (70-100); POTASSIUM SERUM 4.7 MEQ/L (3.5-5.1); SODIUM LEVEL 133 MEQ/L (136-145)
[2020-08-16 10:32] LABS: HEMOGLOBIN A1c 11.8 %
== END ==
LOC: M SFHCPLAZ 08:06
PROVIDERS: ATTEND Physician Assistant
DX: E11.65 Type 2 diabetes mellitus with hyperglycemia (principal)

== ENCOUNTER → 2020-10-06 | Outpatient (CLI) | payer BC ==
--- NOTE | 2020-10-06 18:17 | REPVR ---
PROCEDURE INFORMATION: Exam: MR Cervical Spine Without Contrast Exam date and time: 10/06/2020 2:56 PM Age: 40 years old Clinical indication: Neck pain; Additional info: Radiculopathy TECHNIQUE: Imaging protocol: Multiplanar magnetic resonance images of the cervical spine without contrast. COMPARISON: CT Head without contrast 10/27/2015 4:06 PM FINDINGS: Cervical vertebral body heights are intact. Straightening of the cervical lordosis. The dens is intact. No abnormal marrow signal. No cord compression, expansion, or abnormal cord signal. Visualized structures of the posterior fossa are unremarkable. Soft tissues are unremarkable. C2-C3: No significant canal or foraminal narrowing. C3-C4: Uncovertebral spurring causes moderate left and moderate to severe right foraminal narrowing. No significant canal narrowing. C4-C5: Uncovertebral spurring causes mild left and omob-kb-hatwotlo right foraminal narrowing. No significant canal narrowing. C5-C6: Uncovertebral spurring causes mild left and [id number]-fkxkdvnh right foraminal narrowing. No significant canal narrowing. C6-C7: Uncovertebral spurring causes mild bilateral foraminal narrowing. No significant canal narrowing. C7-T1: Uncovertebral spurring causes mild bilateral foraminal narrowing. No significant canal narrowing. IMPRESSION: Multilevel spondylotic changes of the cervical spine, including moderate to severe right foraminal narrowing at C3-C4, as detailed above. Electronically signed by: Shalom Calero On 10/06/2020 18:16:36 PM
== END ==
LOC: M PLAIMG 14:11
PROVIDERS: ATTEND Orthopaedic Surgery
DX: M54.12 Radiculopathy, cervical region (principal); M25.78 Osteophyte, vertebrae; M50.31 Other cervical disc degeneration, high cervical region

== ENCOUNTER 2020-11-11 11:38 | Emergency (ER) | payer BC, OTHER ==
[~2020-11-11] VITALS: Ht 175.3 cm; Wt 117.8 kg
[2020-11-11 15:04] VITALS: BP 141/88
== END 2020-11-11 15:06 | disposition home or self-care (01) ==
LOC: M ED 11:38
DX: L60.0 Ingrowing nail (principal); E11.9 Type 2 diabetes mellitus without complications; E78.5 Hyperlipidemia, unspecified; Z79.899 Other long term (current) drug therapy

== ENCOUNTER 2020-12-06 11:58 | Emergency (ER) | payer OTHER ==
[~2020-12-06] VITALS: Ht 182.9 cm; Wt 122.2 kg
[2020-12-06] MEDS ORDERED: ACETAMINOPHEN 500 MG TAB PO ONE (16:10)
[2020-12-06 16:16] VITALS: O2SAT 98
[2020-12-06 17:00] LABS: RSV AMPLIFICATION NEGATIVE (NEGATIVE)
[2020-12-06] MEDS ORDERED: PROAAER10 INH (21:13)
[2020-12-06 21:16] VITALS: BP 155/89
== END 2020-12-06 21:21 | disposition home or self-care (01) ==
LOC: M ED 11:58
DX: U07.1 COVID-19 (principal); R05.9 Cough, unspecified; R51.9 Headache, unspecified; E11.9 Type 2 diabetes mellitus without complications; E78.5 Hyperlipidemia, unspecified; Z79.4 Long term (current) use of insulin; Z79.899 Other long term (current) drug therapy

== ENCOUNTER 2020-12-07 09:14 | Outpatient (CLI) | payer OTHER ==
--- NOTE | 2020-12-06 20:43 | HPEPDOC ---
[facility] Medical History & Physical Date of Admission Dec 06, 2020 Date of Service: Dec 06, 2020 Attending Physician: EMILY COLORADO MD History and Physical CHIEF COMPLAINT: [40 y/o male c/o malaise, sore throat, fatigue x5 days] HISTORY OF PRESENT ILLNESS: [This is a 40 y/o male with a pmh of iddm2 and hld who presents to our ED on 12/06 with a cc of malaise, sore throat, headache, myalgias and fatigue that have been persistent for 5 days. Patient states that he has been in house with his step-son who has tested positive for COVID19 infec tion on 12/03. Patient states that he has not taken any OTC remedies for his symptoms. Patient admits to associated nonproductive cough. Patient, at the time of my exam, denies any chest pain, sob, hemoptysis, calf pain, back pain, syncope, paresthesias, pedal edema.] PAST MEDICAL HISTORY: 1. [See HPI PAST SURGICAL HISTORY: 1. [Childhood ankle surgery SOCIAL HISTORY: Tobacco use:[Denies] ETOH: [Denies] Illicit drug use: [Denies] FAMILY HISTORY: Reviewed - none pertinent ALLERGIES: Please see below. REVIEW OF SYSTEMS: CONSTITUTIONAL: [See HPI]. HEENT: [See HPI]. CARDIOVASCULAR: [Denies chest pain, palpitations]. RESPIRATORY: [Denies sob]. GASTROINTESTINAL: [Denies abd pain, n/v/d/c]. GENITOURINARY: [Denies dysuria]. SKIN: [Denies rash]. MUSCULOSKELETAL: [Admits to myalgias. Denies acute joint/back pain]. NEUROLOGICAL: [Denies syncope, paresthesias]. ENDOCRINE: [Hx of iddm2]. HEMATOLOGIC/LYMPHATIC: [Denies hx of vte]. HOME MEDICATIONS: Please see below. PHYSICAL EXAMINATION: VITAL SIGNS: Please see below. GENERAL APPEARANCE: [This is a fatigued appearing 40 y/o male who is alert and oriented to all questioning. He does not appear to be in any acute distress]. HEENT: [No mass or lesion. EOMI. No scleral icterus. nares patent. Oral mucosa moist]. CARDIOVASCULAR: [Regular rate, rhythm.]. LUNGS: [Good air flow b/l. no wheezing]. ABDOMEN: [Soft, nontender]. MUSCULOSKELETAL: [No joint deformity]. EXTREMITIES: [No peripheral edema]. NEUROLOGICAL: [Speech clear. A+Ox3. No focal deficits]. PSYCHIATRIC: [Mood and affect appear appropriate]. LABORATORY DATA: See below. IMAGING: [None performed.] MICROBIOLOGY: Please see below. ASSESSMENT: [This is a 40 y/o male with a pmh of iddm2 and hld who presents to our ED on 12/06 with a cc of malaise, sore throat, headache, myalgias and fatigue that have been persistent for 5 days. Patient states that he has been in house with his step-son who has tested positive for COVID19 infection on 12/03. ]. . PLAN: 1. [COVD19 - Patient does not meet admission criteria without any hypoxia, severe symptomatology. - Patient at increased risk for poor outcome from COVID19 infection d/t his poorly controlled diabetes and obesity - Will go ahead with monoclonal antibody infusion therapy - consent form has been signed - Risks and benefits of infusion have been discussed with patient who verbalized understanding to me - Will order medication on hand in case of transfusion reaction - Pending no reaction to the infusion, patient may go home after observation period after the infusion - Patient may have regular diet while in house for his infusion]. Home Medications Scheduled Insulin Glargine,Hum.rec.anlog (Lantus Solostar) 100 Unit/Ml Inj, 65 UNITS SUBQ QHS Metformin HCl (Metformin HCl) 1,000 Mg Tablet, 1,000 MG BID Scheduled PRN Albuterol Sulfate (Proair Hfa) 8.5 Gm Hfa.aer.ad, 2 PUFF INH Q4-6HP PRN for wheezing Allergies Coded Allergies: No Known Allergies (Unverified , 05/30/19) A-FIB/CHADSVASC A-FIB History Current/History of A-Fib/PAF?: No ANATOLIY AHUMADA Dec 06, 2020 20:43
[~2020-12-07] VITALS: Ht 182.9 cm; Wt 121.7 kg
[~2020-12-07 09:14] MED LIST changes: +ACETAMINOPHEN TAB 650MG DOSE (2X325MG) PO PRN; +ALBUTEROL 90 MCG/ACT 8GM HFA INHALER INH PRN; +ALBUTEROL SULFATE 2.5 MG/0.5 ML INH NEB SOLN INH PRN; +EPINEPHrine INJ 1 MG/ML 1ML AMP IM PRN; +NS 1,000 ML IV SCH; +PROAAER10 INH; +diphenhydrAMINE 50MG/ML VIAL (J1200) IV PRN; +methylPREDNISolone 125MG 2ML VIAL IV PRN
[2020-12-07 10:12] VITALS: BP 110/77
[2020-12-07 11:32] VITALS: BP 149/71
[2020-12-07 11:59] VITALS: BP 119/84
[2020-12-07] MEDS ORDERED: CASIRIVIMAB/IMDEVIMAB 1,200 MG in NS 250 ML IV ONE (12:00)
[2020-12-07 12:30] VITALS: BP 145/83
[2020-12-07 12:44] VITALS: BP 142/78
[2020-12-07 13:47] VITALS: BP 142/88
== END 2020-12-07 13:58 | disposition home or self-care (01) ==
LOC: M OPCLI4PR 09:14 → M MS4PR 09:14 → M OPCLI4PR 13:58
PROVIDERS: ATTEND Internal Medicine
DX: U07.1 COVID-19 (principal)
CPT/HCPCS: 96361; M0243

== ENCOUNTER 2021-01-21 13:09 | Inpatient (IN) | payer BC, OTHER ==
[~2021-01-21] VITALS: Ht 182.9 cm; Wt 120.5 kg
[~2021-01-21 13:09] MED LIST changes: -ACETAMINOPHEN TAB 650MG DOSE (2X325MG) PO PRN; -ALBUTEROL 90 MCG/ACT 8GM HFA INHALER INH PRN; -ALBUTEROL SULFATE 2.5 MG/0.5 ML INH NEB SOLN INH PRN; -EPINEPHrine INJ 1 MG/ML 1ML AMP IM PRN; -NS 1,000 ML IV SCH; -diphenhydrAMINE 50MG/ML VIAL (J1200) IV PRN; -methylPREDNISolone 125MG 2ML VIAL IV PRN
[2021-01-21] MEDS ORDERED: ATOR1TAB21 PO (13:17)
[2021-01-21] MEDS ORDERED: BASA100I SUBQ (13:17)
[2021-01-21 15:12] LABS: BASO # 0.1 10^3/uL (0.0-0.2); BASO % 0.5 % (0.0-1.0); EOS # 0.2 10^3/uL (0.0-0.5); EOS % 1.5 % (0.0-3.0); HEMATOCRIT 45.5 % (42.0-52.0); HEMOGLOBIN 15.3 g/dl (13.5-17.5); LYMPH # 2.3 10^3/uL (1.5-5.0); LYMPH % 20.6 % (24.0-44.0); MEAN CORPUSCULAR HEMOGLOBIN 29.6 pg (27.0-33.0); MEAN CORPUSCULAR HGB CONC 33.6 g/dl (32.0-36.5); MONO # 0.9 10^3/uL (0.0-0.8); MONO % 8.5 % (2.0-8.0); NEUTROPHILS # 7.5 10^3/uL (1.5-8.5); NEUTROPHILS % 68.6 % (36.0-66.0); PLATELET COUNT, AUTOMATED 293 10^3/uL (150-450); RED BLOOD COUNT 5.17 10^6/uL (4.30-6.10)
[2021-01-21 15:25] LABS: INR 1.02; PROTHROMBIN TIME 13.8 SECONDS (12.7-14.5)
[2021-01-21 15:43] LABS: PARTIAL THROMBOPLASTIN TIME 31.7 SECONDS (25.9-37.0)
[2021-01-21 15:54] LABS: ALBUMIN 3.4 GM/DL (3.2-5.2); ALT/SGPT 18 U/L (12-78); BILIRUBIN,DIRECT 0.1 MG/DL (0.0-0.2); BILIRUBIN,TOTAL 0.7 MG/DL (0.2-1.0); BLOOD UREA NITROGEN 11 MG/DL (7-18); CALCIUM LEVEL 8.5 MG/DL (8.5-10.1); CARBON DIOXIDE LEVEL 25 MEQ/L (21-32); CHLORIDE LEVEL 107 MEQ/L (98-107); CREATININE FOR GFR 0.74 MG/DL (0.70-1.30); GLOMERULAR FILTRATION RATE > 60.0 (>60); GLUCOSE, FASTING 125 MG/DL (70-100); LIPASE 37 U/L (73-393); NT-PRO BNP 59 PG/ML (<125); POTASSIUM SERUM 4.7 MEQ/L (3.5-5.1); SODIUM LEVEL 141 MEQ/L (136-145); TOTAL PROTEIN 7.5 GM/DL (6.4-8.2)
[2021-01-21] MEDS ORDERED: ISOVUE-370 76% 100ML VIAL As Ordered ONE (16:26)
[2021-01-21] MEDS ORDERED: HEPARIN DRIP 25,000 UNITS in IV 1 EA IV SCH ×2 (16:30→20:00)
[2021-01-21] MEDS ORDERED: HEPARIN SOD (PORCINE) 5000UNITS/ML 1ML VIAL/SYRINGE IV ONE (16:30)
[2021-01-21 17:43] LABS: CPK CREATINE PHOSPHOKINASE 122 U/L (39-308)
[2021-01-21] MEDS ORDERED: MORPHINE 4 MG/ML 1ML VIAL/SYRINGE (J2270) IV ONE (17:45)
[2021-01-21 18:03] LABS: CK-MB VALUE MASS < 1.0 NG/ML (<3.6); MB/CK RELATIVE INDEX 0.82 (< OR =4)
[2021-01-21] MEDS ORDERED: PROAAER10 INH (19:02)
[2021-01-21] MEDS ORDERED: HOME MED LIST COMPLETE! XX SCH (19:05)
[2021-01-21] MEDS ORDERED: MAALOX 30 ML SUSP *UDC PO PRN (19:25)
[2021-01-21] MEDS ORDERED: ACETAMINOPHEN TAB 650MG DOSE (2X325MG) PO PRN (19:25)
[2021-01-21] MEDS ORDERED: HEPARIN SOD (PORCINE) 5000UNITS/ML 1ML VIAL/SYRINGE IV PRN (19:25)
[2021-01-21] MEDS ORDERED: MOM 30ML SUSPENSION UDC PO PRN (19:25)
[2021-01-21] MEDS ORDERED: GLUCOSE 4GM CHEW TABLET PO PRN (19:45)
[2021-01-21] MEDS ORDERED: GLUCAGON INJ 1MG VIAL SC PRN (19:45)
[2021-01-21] MEDS ORDERED: DEXTROSE 50% 50 ML SYRINGE IV PRN (19:45)
[2021-01-21] MEDS ORDERED: HumaLOG INSULIN (NovoLOG) PER UNIT SC SCH (21:00)
[2021-01-22 00:03] LABS: RSV AMPLIFICATION NEGATIVE (NEGATIVE)
[2021-01-22 01:34] VITALS: BP 165/92
[2021-01-22 04:00] VITALS: BP 136/87; O2SAT 96
[2021-01-22 07:55] VITALS: BP 161/89
[2021-01-22] MEDS ORDERED: LEVEMIR (INSULIN DETEMIR) 1 UNITS/0.01ML SC SCH (09:00)
[2021-01-22 09:47] LABS: BASO # 0.1 10^3/uL (0.0-0.2); BASO % 0.6 % (0.0-1.0); EOS # 0.2 10^3/uL (0.0-0.5); EOS % 1.8 % (0.0-3.0); HEMATOCRIT 47.1 % (42.0-52.0); HEMOGLOBIN 15.7 g/dl (13.5-17.5); LYMPH # 2.7 10^3/uL (1.5-5.0); LYMPH % 26.9 % (24.0-44.0); MEAN CORPUSCULAR HEMOGLOBIN 29.4 pg (27.0-33.0); MEAN CORPUSCULAR HGB CONC 33.3 g/dl (32.0-36.5); MEAN CORPUSCULAR VOLUME 88.2 fl (80.0-96.0); MONO # 0.9 10^3/uL (0.0-0.8); MONO % 9.2 % (2.0-8.0); NEUTROPHILS % 61.2 % (36.0-66.0); PLATELET COUNT, AUTOMATED 285 10^3/uL (150-450); RED BLOOD COUNT 5.34 10^6/uL (4.30-6.10); WHITE BLOOD COUNT 9.9 10^3/uL (4.0-10.0)
[2021-01-22] MEDS: HumaLOG INSULIN (NovoLOG) PER UNIT SC SCH ×3 (10:07→18:12)
[2021-01-22] MEDS ORDERED: ELIQ5TAB PO (10:33)
[2021-01-22] MEDS ORDERED: ACET1TAB55 PO (10:33)
[2021-01-22 10:40] LABS: CK-MB VALUE MASS < 1.0 NG/ML (<3.6); CPK CREATINE PHOSPHOKINASE 41 U/L (39-308); MB/CK RELATIVE INDEX 2.44 (< OR =4)
[2021-01-22 10:48] LABS: ALBUMIN 3.5 GM/DL (3.2-5.2); ALT/SGPT 18 U/L (12-78); BILIRUBIN,TOTAL 0.9 MG/DL (0.2-1.0); BLOOD UREA NITROGEN 10 MG/DL (7-18); CALCIUM LEVEL 8.8 MG/DL (8.5-10.1); CARBON DIOXIDE LEVEL 25 MEQ/L (21-32); CHLORIDE LEVEL 101 MEQ/L (98-107); CREATININE FOR GFR 0.74 MG/DL (0.70-1.30); GLOMERULAR FILTRATION RATE > 60.0 (>60); GLUCOSE, FASTING 194 MG/DL (70-100); MAGNESIUM LEVEL 2.2 MG/DL (1.8-2.4); POTASSIUM SERUM 4.6 MEQ/L (3.5-5.1); SODIUM LEVEL 135 MEQ/L (136-145); TOTAL PROTEIN 7.7 GM/DL (6.4-8.2)
[2021-01-22] MEDS: APIXABAN 5 MG TAB (ELIQUIS) PO SCH ×2 (11:32→18:12)
[2021-01-22] MEDS ORDERED: BASA100I SUBQ (12:18)
[2021-01-22 12:58] LABS: HEMOGLOBIN A1c 10.8 %
[2021-01-22 16:00] VITALS: BP 143/89
[2021-01-25 12:08] LABS: ANTI THROMBIN 3 ANTIGEN IMMUNO 111 % (72-124); ANTI THROMBIN 3 FUNCT ACTIVITY 124 % (75-135); CARDIOLIPIN IGA ANTIBODY <9 APL U/mL (0-11); CARDIOLIPIN IGG ANTIBODY <9 GPL U/mL (0-14); CARDIOLIPIN IGM ANTIBODY 9 MPL U/mL (0-12); PHOSPHOLIPIDS LEVEL 180 mg/dL (150-250); PROTEIN C FUNCTIONAL ACTIVITY 149 % (73-180); PROTEIN S FUNCTIONAL ACTIVITY 99 % (63-140)
[2021-01-26 10:52] LABS: DRVV SCREEN 42.6 SEC
[2021-01-26 10:55] LABS: PTT LUPUS TYPE ANTICOAG SCREEN 1.1 (0-1.2)
[2021-03-24] MEDS ORDERED: ELIQ5TAB PO (15:30)
== END 2021-01-22 18:40 | disposition home or self-care (01) | DRG 197 ==
LOC: M ED 13:09 → M ED INP 19:25 → M PCU 01-22 01:21
PROVIDERS: ADMIT Family Medicine; ATTEND Family Medicine
DX: I82.431 Acute embolism and thrombosis of right popliteal vein (principal); I26.99 Other pulmonary embolism without acute cor pulmonale; I82.411 Acute embolism and thrombosis of right femoral vein; E66.9 Obesity, unspecified; E11.9 Type 2 diabetes mellitus without complications; E78.00 Pure hypercholesterolemia, unspecified; Z79.899 Other long term (current) drug therapy; Z79.4 Long term (current) use of insulin

== ENCOUNTER → 2021-05-08 | Outpatient (CLI) | payer OTHER ==
[~2021-05-08] MED LIST changes: +ACET1TAB55 PO; +ATOR1TAB21 PO; +BASA100I SUBQ; +ELIQ5TAB PO; +ISOVUE-370 76% 100ML VIAL As Ordered ONE
== END ==
LOC: M RAD 12:21
PROVIDERS: ATTEND Internal Medicine Hematology & Oncology
DX: Z86.711 Personal history of pulmonary embolism (principal)
CPT/HCPCS: 71275; 93971; Q9967

== ENCOUNTER → 2021-05-17 | Outpatient (CLI) | payer OTHER ==
[~2021-05-17] MED LIST changes: -ISOVUE-370 76% 100ML VIAL As Ordered ONE
== END ==
LOC: M LAB 09:36
PROVIDERS: ATTEND Family Medicine
DX: Z53.9 Procedure and treatment not carried out, unspecified reason (principal); E11.65 Type 2 diabetes mellitus with hyperglycemia

== ENCOUNTER → 2021-05-18 | Outpatient (CLI) | payer OTHER ==
[2021-05-18 12:51] LABS: ALBUMIN 3.7 GM/DL (3.2-5.2); ALT/SGPT 28 U/L (12-78); BILIRUBIN,TOTAL 0.5 MG/DL (0.2-1.0); BLOOD UREA NITROGEN 15 MG/DL (7-18); CALCIUM LEVEL 8.7 MG/DL (8.5-10.1); CARBON DIOXIDE LEVEL 26 MEQ/L (21-32); CHLORIDE LEVEL 104 MEQ/L (98-107); CHOLESTEROL LEVEL 193 MG/DL (<200); CHOLESTEROL RISK RATIO 4.948 (<5); CREATININE FOR GFR 0.78 MG/DL (0.70-1.30); FREE T4 1.18 NG/DL (0.76-1.46); GLOMERULAR FILTRATION RATE > 60.0 (>60); GLUCOSE, FASTING 253 MG/DL (70-100); HDL CHOLESTEROL 39 MG/DL (>40); LDL CHOLESTEROL 124 MG/DL (<100); NON-HDL-C 154 MG/DL; POTASSIUM SERUM 4.3 MEQ/L (3.5-5.1); SODIUM LEVEL 136 MEQ/L (136-145); THYROID STIMULATING HORMONE 0.809 uIU/ML (0.358-3.740); TOTAL PROTEIN 6.9 GM/DL (6.4-8.2); TRIGLYCERIDES LEVEL 152 MG/DL (<150)
[2021-05-18 13:12] LABS: HEMOGLOBIN A1c 10.3 %
== END ==
LOC: M LAB 11:05
PROVIDERS: ATTEND Family Medicine
DX: E11.65 Type 2 diabetes mellitus with hyperglycemia (principal)

== ENCOUNTER → 2021-08-18 | Outpatient (CLI) | payer OTHER ==
[~2021-08-18] MED LIST changes: +STEG15TA; +TRUL0.5I
== END ==
LOC: M RAD 11:56
PROVIDERS: ATTEND Internal Medicine Hematology & Oncology
DX: M79.604 Pain in right leg (principal); R22.41 Localized swelling, mass and lump, right lower limb

== ENCOUNTER 2021-10-04 19:14 | Emergency (ER) | payer OTHER ==
[~2021-10-04] VITALS: Ht 180.3 cm; Wt 111.3 kg
[2021-10-04 19:16] VITALS: BP 129/82
[2021-10-04 20:16] VITALS: O2SAT 95
[2021-10-04] MEDS ORDERED: ACETAMINOPHEN 500 MG TAB PO ONE (21:00)
[2021-10-04 21:20] LABS: RSV AMPLIFICATION NEGATIVE (NEGATIVE)
== END 2021-10-04 23:04 | disposition home or self-care (01) ==
LOC: M ED 19:14
DX: U07.1 COVID-19 (principal); E11.9 Type 2 diabetes mellitus without complications; I10 Essential (primary) hypertension; Z79.01 Long term (current) use of anticoagulants; Z79.51 Long term (current) use of inhaled steroids; Z79.4 Long term (current) use of insulin

== ENCOUNTER 2022-04-26 16:50 | Emergency (ER) | payer OTHER ==
[~2022-04-26] VITALS: Ht 177.8 cm; Wt 101.2 kg
[2022-04-26 16:51] VITALS: BP 142/91
[2022-04-26 18:47] LABS: RSV AMPLIFICATION NEGATIVE (NEGATIVE)
[2022-04-26] MEDS ORDERED: AMOX500C PO (18:59)
[2022-04-26] MEDS ORDERED: ONDANSETRON 4MG ORAL DISINTEGRATING TAB PO ONE (19:00)
[2022-04-26] MEDS ORDERED: ONDA4TAB6 PO (19:01)
== END 2022-04-26 19:07 | disposition home or self-care (01) ==
LOC: M ED 16:50
DX: J02.0 Streptococcal pharyngitis (principal); E11.9 Type 2 diabetes mellitus without complications; I10 Essential (primary) hypertension; E78.5 Hyperlipidemia, unspecified; Z86.718 Personal history of other venous thrombosis and embolism; Z79.01 Long term (current) use of anticoagulants; Z79.52 Long term (current) use of systemic steroids; Z79.4 Long term (current) use of insulin; Z79.899 Other long term (current) drug therapy

== ENCOUNTER → 2022-05-24 | Outpatient (CLI) | payer OTHER ==
[~2022-05-24] MED LIST changes: +AMOX500C PO
[2022-05-24 12:09] LABS: BASO # 0.1 10^3/uL (0.0-0.2); BASO % 0.6 % (0.0-1.0); EOS # 0.2 10^3/uL (0.0-0.5); EOS % 2.3 % (0.0-3.0); HEMATOCRIT 56.5 % (42.0-52.0); HEMOGLOBIN 17.9 g/dl (13.5-17.5); LYMPH # 2.3 10^3/uL (1.5-5.0); MEAN CORPUSCULAR HEMOGLOBIN 29.5 pg (27.0-33.0); MEAN CORPUSCULAR HGB CONC 31.7 g/dl (32.0-36.5); MEAN CORPUSCULAR VOLUME 93.2 fl (80.0-96.0); MONO # 0.5 10^3/uL (0.0-0.8); NEUTROPHILS # 4.7 10^3/uL (1.5-8.5); PLATELET COUNT, AUTOMATED 402 10^3/uL (150-450); RED BLOOD COUNT 6.06 10^6/uL (4.30-6.10); WHITE BLOOD COUNT 7.8 10^3/uL (4.0-10.0)
[2022-05-24 12:37] LABS: MAU/CREAT RATIO 32.2 MCG/MG (0.0-30.0)
[2022-05-24 12:43] LABS: THYROID STIMULATING HORMONE 1.49 uIU/ML (0.55-4.78)
[2022-05-24 12:44] LABS: HEMOGLOBIN A1c 11.7 % (4.0-6.0)
[2022-05-24 12:45] LABS: CHOLESTEROL RISK RATIO 3.56 (<5); FREE T4 1.19 NG/DL (0.89-1.76); HDL CHOLESTEROL 41.2 MG/DL (>40); NON-HDL-C 105.8 MG/DL
== END ==
LOC: M PLALAB 08:14
PROVIDERS: ATTEND Nurse Practitioner Family
DX: E78.2 Mixed hyperlipidemia (principal); E11.65 Type 2 diabetes mellitus with hyperglycemia

== ENCOUNTER 2022-06-01 20:17 | Inpatient (IN) | payer OTHER ==
[~2022-06-01] VITALS: Ht 177.8 cm; Wt 106.2 kg
[~2022-06-01 20:17] MED LIST changes: -STEG15TA; +STEG15TA PO; -TRUL0.5I; +TRUL0.5I PO
[2022-06-01] MEDS ORDERED: NS 1,000 ML IV ONE (20:45)
[2022-06-01 21:08] LABS: BASO # 0.1 10^3/uL (0.0-0.2); BASO % 0.3 % (0.0-1.0); HEMATOCRIT 49.3 % (42.0-52.0); HEMOGLOBIN 16.4 g/dl (13.5-17.5); LYMPH % 4.4 % (24.0-44.0); MEAN CORPUSCULAR HEMOGLOBIN 30.2 pg (27.0-33.0); MEAN CORPUSCULAR HGB CONC 33.3 g/dl (32.0-36.5); MEAN CORPUSCULAR VOLUME 90.8 fl (80.0-96.0); MONO % 7.3 % (2.0-8.0); NEUTROPHILS # 19.3 10^3/uL (1.5-8.5); NEUTROPHILS % 87.6 % (36.0-66.0); PLATELET COUNT, AUTOMATED 375 10^3/uL (150-450); RED BLOOD COUNT 5.43 10^6/uL (4.30-6.10)
[2022-06-01 21:24] LABS: MONO # 1.6 10^3/uL (0.0-0.8)
[2022-06-01 21:39] LABS: CK-MB VALUE MASS < 1.0 NG/ML (<3.6)
[2022-06-01 21:40] LABS: BLOOD UREA NITROGEN 12 MG/DL (9-23); CARBON DIOXIDE LEVEL 24 MMOL/L (20-31); CHLORIDE LEVEL 105 MMOL/L (98-107); CREATININE FOR GFR 0.85 MG/DL (0.70-1.30); GLOMERULAR FILTRATION RATE > 60.0 (>60); GLUCOSE, FASTING 121 MG/DL (60-100); POTASSIUM SERUM 4.2 MMOL/L (3.5-5.1); SODIUM LEVEL 138 MMOL/L (136-145)
[2022-06-01 21:42] LABS: FREE T4 0.96 NG/DL (0.89-1.76); THYROID STIMULATING HORMONE 0.482 uIU/ML (0.55-4.78)
[2022-06-01 21:44] LABS: CPK CREATINE PHOSPHOKINASE 46 U/L (46-171); MB/CK RELATIVE INDEX 2.17 (< OR =4)
[2022-06-01] MEDS ORDERED: ACETAMINOPHEN 500 MG TAB PO ONE (22:25)
[2022-06-01 23:01] LABS: CK-MB VALUE MASS < 1.0 NG/ML (<3.6)
[2022-06-01 23:05] LABS: CPK CREATINE PHOSPHOKINASE 47 U/L (46-171); MB/CK RELATIVE INDEX 2.12 (< OR =4)
[2022-06-01 23:23] LABS: APPEARANCE, URINE CLEAR (CLEAR); BACTERIA, URINE AUTO NEGATIVE (NEGATIVE); BILIRUBIN, URINE AUTO NEGATIVE (NEGATIVE); BLOOD, URINE BLOOD 2+ (NEGATIVE); COLOR, URINE YELLOW (YELLOW); GLUCOSE, URINE (UA) AUTO 3+ mg/dL (NEGATIVE); KETONE, URINE AUTO 2+ mg/dL (NEGATIVE); LEUKOCYTE ESTERASE, URINE AUTO NEGATIVE (NEGATIVE); MUCUS, URINE SMALL (NEGATIVE); NITRITE, URINE AUTO NEGATIVE (NEGATIVE); PROTEIN, URINE AUTO NEGATIVE (NEGATIVE); RBC, URINE AUTO 1 /HPF (0-3); SPECIFIC GRAVITY URINE AUTO 1.033 (1.002-1.035); SQUAMOUS EPITHELIAL CELL UR AU 0 /HPF (0-6); UROBILINOGEN, URINE AUTO 0.2 mg/dL (0.0-2.0); WBC, URINE AUTO 0 /HPF (0-3)
[2022-06-01] MEDS ORDERED: ISOVUE-370 76% 100ML VIAL As Ordered ONE (23:41)
[2022-06-02] MEDS ORDERED: DEXTROSE 50% 50ML SYRINGE IV PRN (01:45)
[2022-06-02] MEDS ORDERED: GLUCOSE 4GM CHEW TABLET PO PRN (01:45)
[2022-06-02] MEDS ORDERED: GLUCAGON INJ 1MG VIAL SC PRN (01:45)
[2022-06-02] MEDS ORDERED: ACETAMINOPHEN TAB 650MG DOSE (2X325MG) PO PRN (01:45)
[2022-06-02] MEDS ORDERED: BASA100I SC (01:51)
[2022-06-02] MEDS ORDERED: ATOR1TAB19 PO (01:51)
[2022-06-02] MEDS ORDERED: HOME MED LIST COMPLETE! XX SCH (01:55)
[2022-06-02 03:42] VITALS: BP 153/96
[2022-06-02] MEDS ORDERED: NS 1,000 ML IV ONE (03:45)
[2022-06-02] MEDS ORDERED: NS 1,000 ML IV SCH (03:45)
[2022-06-02] MEDS: LevoFLOXacin IV 750 MG in IV 1 EA IV SCH (04:56)
[2022-06-02 05:12] VITALS: BP 152/96
[2022-06-02 07:17] LABS: ALBUMIN 3.3 G/DL (3.2-5.2); ALKALINE PHOSPHATASE 65 U/L (46-116); ALT/SGPT < 9 U/L (7.0-40); AST/SGOT 11 U/L (<34); BILIRUBIN,DIRECT 0.4 MG/DL (<0.4); BLOOD UREA NITROGEN 10 MG/DL (9-23); CALCIUM LEVEL 8.4 MG/DL (8.5-10.1); CARBON DIOXIDE LEVEL 22 MMOL/L (20-31); CHLORIDE LEVEL 104 MMOL/L (98-107); CREATININE FOR GFR 0.69 MG/DL (0.70-1.30); GLOMERULAR FILTRATION RATE > 60.0 (>60); GLUCOSE, FASTING 74 MG/DL (60-100); POTASSIUM SERUM 4.1 MMOL/L (3.5-5.1); SODIUM LEVEL 138 MMOL/L (136-145); TOTAL PROTEIN 6.2 G/DL (5.7-8.2)
[2022-06-02] MEDS: INSULIN LISPRO (NovoLOG) PER UNIT SC SCH ×4 (07:21→20:31)
[2022-06-02 07:30] LABS: BASO # 0.1 10^3/uL (0.0-0.2); BASO % 0.4 % (0.0-1.0); EOS % 0.1 % (0.0-3.0); HEMATOCRIT 46.4 % (42.0-52.0); HEMOGLOBIN 15.4 g/dl (13.5-17.5); LYMPH # 0.9 10^3/uL (1.5-5.0); LYMPH % 4.6 % (24.0-44.0); MEAN CORPUSCULAR HEMOGLOBIN 30.3 pg (27.0-33.0); MEAN CORPUSCULAR HGB CONC 33.2 g/dl (32.0-36.5); MEAN CORPUSCULAR VOLUME 91.2 fl (80.0-96.0); MONO % 8.7 % (2.0-8.0); NEUTROPHILS # 16.5 10^3/uL (1.5-8.5); NEUTROPHILS % 85.5 % (36.0-66.0); PLATELET COUNT, AUTOMATED 360 10^3/uL (150-450); RED BLOOD COUNT 5.09 10^6/uL (4.30-6.10); WHITE BLOOD COUNT 19.3 10^3/uL (4.0-10.0)
[2022-06-02 07:50] LABS: MONO # 1.7 10^3/uL (0.0-0.8)
[2022-06-02] MEDS: APIXABAN 5 MG TAB (ELIQUIS) PO SCH ×2 (08:52→20:25)
[2022-06-02] MEDS ORDERED: ATORVASTATIN 10 MG TAB PO SCH (09:00)
[2022-06-02] MEDS: PANTOPRAZOLE 40MG VIAL IV SCH (12:50)
[2022-06-02] MEDS ORDERED: ACETAMINOPHEN 325 MG TAB PO PRN (13:45)
[2022-06-02 14:20] VITALS: BP 152/78
[2022-06-02] MEDS: POTASSIUM CHLORIDE INJ 20 MEQ in D5W/LR 1,000 ML IV SCH ×2 (14:26→22:27)
[2022-06-02] MEDS ORDERED: ISOVUE-370 76% 100ML VIAL As Ordered ONE ×2 (19:34→21:56)
[2022-06-02 20:34] VITALS: BP 127/91
[2022-06-02] MEDS ORDERED: FLUTICASONE PROP 0.05% NASAL SPRAY 16 GM (FLONASE) NARES PRN (20:35)
[2022-06-02] MEDS: CHLORASEPTIC SPRAY MT PRN (21:32)
[2022-06-02] MEDS: IBUPROFEN 800 MG TAB PO PRN (22:29)
[2022-06-03] MEDS: LevoFLOXacin IV 750 MG in IV 1 EA IV SCH (03:32)
[2022-06-03 05:36] VITALS: BP 129/91
[2022-06-03 06:23] LABS: BASO # 0.1 10^3/uL (0.0-0.2); BASO % 0.3 % (0.0-1.0); EOS % 0.1 % (0.0-3.0); HEMATOCRIT 46.9 % (42.0-52.0); HEMOGLOBIN 15.3 g/dl (13.5-17.5); LYMPH # 1.8 10^3/uL (1.5-5.0); LYMPH % 9.9 % (24.0-44.0); MEAN CORPUSCULAR HEMOGLOBIN 30.2 pg (27.0-33.0); MEAN CORPUSCULAR HGB CONC 32.6 g/dl (32.0-36.5); MEAN CORPUSCULAR VOLUME 92.5 fl (80.0-96.0); MONO % 10.5 % (2.0-8.0); NEUTROPHILS # 14.2 10^3/uL (1.5-8.5); NEUTROPHILS % 78.6 % (36.0-66.0); PLATELET COUNT, AUTOMATED 331 10^3/uL (150-450); RED BLOOD COUNT 5.07 10^6/uL (4.30-6.10); WHITE BLOOD COUNT 18.1 10^3/uL (4.0-10.0)
[2022-06-03 06:49] LABS: BLOOD UREA NITROGEN 10 MG/DL (9-23); CALCIUM LEVEL 8.8 MG/DL (8.5-10.1); CARBON DIOXIDE LEVEL 23 MMOL/L (20-31); CHLORIDE LEVEL 105 MMOL/L (98-107); CREATININE FOR GFR 0.67 MG/DL (0.70-1.30); GLOMERULAR FILTRATION RATE > 60.0 (>60); GLUCOSE, FASTING 117 MG/DL (60-100); POTASSIUM SERUM 4.4 MMOL/L (3.5-5.1); SODIUM LEVEL 138 MMOL/L (136-145)
[2022-06-03 06:51] LABS: MONO # 1.9 10^3/uL (0.0-0.8)
[2022-06-03] MEDS: POTASSIUM CHLORIDE INJ 20 MEQ in D5W/LR 1,000 ML IV SCH (07:32)
[2022-06-03] MEDS: INSULIN LISPRO (NovoLOG) PER UNIT SC SCH ×4 (07:32→20:50)
[2022-06-03] MEDS: ATORVASTATIN 10 MG TAB PO SCH (09:29)
[2022-06-03] MEDS: APIXABAN 5 MG TAB (ELIQUIS) PO SCH ×2 (09:29→21:17)
[2022-06-03] MEDS: PANTOPRAZOLE 40MG VIAL IV SCH (12:59)
[2022-06-03] MEDS: IBUPROFEN 800 MG TAB PO PRN (15:33)
[2022-06-03 21:03] VITALS: BP 150/75
[2022-06-04] MEDS: LevoFLOXacin IV 750 MG in IV 1 EA IV SCH (03:43)
[2022-06-04] MEDS: CHLORASEPTIC SPRAY MT PRN (03:48)
[2022-06-04] MEDS: IBUPROFEN 800 MG TAB PO PRN (03:48)
[2022-06-04 06:00] VITALS: BP 142/90
[2022-06-04 06:04] LABS: BASO # 0.1 10^3/uL (0.0-0.2); BASO % 0.5 % (0.0-1.0); EOS % 0.2 % (0.0-3.0); HEMATOCRIT 42.6 % (42.0-52.0); LYMPH # 1.4 10^3/uL (1.5-5.0); LYMPH % 10.7 % (24.0-44.0); MEAN CORPUSCULAR HEMOGLOBIN 29.9 pg (27.0-33.0); MEAN CORPUSCULAR HGB CONC 32.9 g/dl (32.0-36.5); MEAN CORPUSCULAR VOLUME 90.8 fl (80.0-96.0); MONO % 12.7 % (2.0-8.0); NEUTROPHILS # 9.7 10^3/uL (1.5-8.5); NEUTROPHILS % 75.4 % (36.0-66.0); PLATELET COUNT, AUTOMATED 347 10^3/uL (150-450); RED BLOOD COUNT 4.69 10^6/uL (4.30-6.10); WHITE BLOOD COUNT 12.8 10^3/uL (4.0-10.0)
[2022-06-04 06:29] LABS: BLOOD UREA NITROGEN 11 MG/DL (9-23); CALCIUM LEVEL 8.4 MG/DL (8.5-10.1); CARBON DIOXIDE LEVEL 24 MMOL/L (20-31); CHLORIDE LEVEL 105 MMOL/L (98-107); CREATININE FOR GFR 0.65 MG/DL (0.70-1.30); GLOMERULAR FILTRATION RATE > 60.0 (>60); GLUCOSE, FASTING 119 MG/DL (60-100); POTASSIUM SERUM 4.1 MMOL/L (3.5-5.1); SODIUM LEVEL 140 MMOL/L (136-145)
[2022-06-04 06:46] LABS: MONO # 1.6 10^3/uL (0.0-0.8)
[2022-06-04 06:47] LABS: ERYTHROCYTE SEDIMENTATION RATE 67 mm/hr (0-15)
[2022-06-04] MEDS: INSULIN LISPRO (NovoLOG) PER UNIT SC SCH (08:22)
[2022-06-04] MEDS: APIXABAN 5 MG TAB (ELIQUIS) PO SCH (08:23)
[2022-06-04] MEDS: ATORVASTATIN 10 MG TAB PO SCH (08:23)
[2022-06-04] MEDS ORDERED: LEVO1TAB40 PO (09:36)
[2022-06-04] MEDS ORDERED: IBUP80TA PO (09:36)
[2022-06-04] MEDS ORDERED: ACET32TAB PO ×2 (09:36→11:30)
[2022-06-04] MEDS ORDERED: ATOR1TAB19 PO (09:36)
== END 2022-06-04 11:25 | disposition home or self-care (01) | DRG 113 ==
LOC: M ED 20:17 → M ED INP 06-02 01:43 → ENRESERV 06-02 03:19 → M MS5PR 06-02 03:43 → OBSVTOIN 06-02 16:24
PROVIDERS: ADMIT Internal Medicine; ATTEND Student in an Organized Health Care Education/Training Program
DX: J02.9 Acute pharyngitis, unspecified (principal); E11.9 Type 2 diabetes mellitus without complications; E78.5 Hyperlipidemia, unspecified; K02.9 Dental caries, unspecified; K04.7 Periapical abscess without sinus; Z79.01 Long term (current) use of anticoagulants; Z86.711 Personal history of pulmonary embolism; Z79.899 Other long term (current) drug therapy; Z79.4 Long term (current) use of insulin

== ENCOUNTER → 2022-07-17 | Outpatient (CLI) | payer OTHER ==
[~2022-07-17] MED LIST changes: +ACET32TAB PO; +ATOR1TAB19 PO; +BASA100I SC; +IBUP80TA PO; +LEVO1TAB40 PO
== END ==
LOC: M WUC 12:26
PROVIDERS: ATTEND Student in an Organized Health Care Education/Training Program
DX: Z02.1 Encounter for pre-employment examination (principal)

== ENCOUNTER 2022-07-23 20:52 | Emergency (ER) | payer OTHER ==
[2022-07-23 20:54] VITALS: BP 142/90
[2022-07-24] MEDS ORDERED: FLUORESCEIN OPHTH 1MG STRIP OS ONE (00:30)
[2022-07-24] MEDS ORDERED: TETRACAINE 0.5% OPHTH SOLN 4ML OU ONE (00:30)
[2022-07-24] MEDS ORDERED: POLYTRIM OPTH DROPS 10ML OD ONE (01:00)
[2022-07-24] MEDS ORDERED: POLYSOL OP (01:10)
== END 2022-07-24 01:40 | disposition home or self-care (01) ==
LOC: M ED 20:52
DX: H10.31 Unspecified acute conjunctivitis, right eye (principal); Z79.01 Long term (current) use of anticoagulants; Z79.4 Long term (current) use of insulin; Z79.899 Other long term (current) drug therapy

== ENCOUNTER 2022-08-28 18:28 | Emergency (ER) | payer OTHER ==
[~2022-08-28] VITALS: Ht 172.7 cm; Wt 100.2 kg
[~2022-08-28 18:28] MED LIST changes: +POLYSOL OP
[2022-08-28] MEDS ORDERED: NS 1,000 ML IV ONE (19:30)
[2022-08-28 19:46] LABS: BASO # 0.1 10^3/uL (0.0-0.2); BASO % 0.4 % (0.0-1.0); EOS # 0.1 10^3/uL (0.0-0.5); EOS % 0.4 % (0.0-3.0); HEMATOCRIT 48.3 % (42.0-52.0); HEMOGLOBIN 16.5 g/dl (13.5-17.5); LYMPH # 1.4 10^3/uL (1.5-5.0); LYMPH % 10.2 % (24.0-44.0); MEAN CORPUSCULAR HEMOGLOBIN 29.6 pg (27.0-33.0); MEAN CORPUSCULAR HGB CONC 34.2 g/dl (32.0-36.5); MEAN CORPUSCULAR VOLUME 86.6 fl (80.0-96.0); MONO # 0.7 10^3/uL (0.0-0.8); MONO % 5.3 % (2.0-8.0); NEUTROPHILS # 11.6 10^3/uL (1.5-8.5); NEUTROPHILS % 83.4 % (36.0-66.0); PLATELET COUNT, AUTOMATED 356 10^3/uL (150-450); RED BLOOD COUNT 5.58 10^6/uL (4.30-6.10); WHITE BLOOD COUNT 13.9 10^3/uL (4.0-10.0)
[2022-08-28 20:05] LABS: LIPASE 22 U/L (12-53)
[2022-08-28 20:07] LABS: ALBUMIN 3.6 G/DL (3.2-5.2); ALKALINE PHOSPHATASE 82 U/L (46-116); ALT/SGPT 17 U/L (7.0-40); AST/SGOT < 8 U/L (<34); BILIRUBIN,DIRECT 0.1 MG/DL (<0.4); BILIRUBIN,TOTAL 0.4 MG/DL (0.3-1.2); BLOOD UREA NITROGEN 19 MG/DL (9-23); CALCIUM LEVEL 9.4 MG/DL (8.5-10.1); CARBON DIOXIDE LEVEL 24 MMOL/L (20-31); CHLORIDE LEVEL 105 MMOL/L (98-107); CREATININE FOR GFR 0.71 MG/DL (0.70-1.30); GLOMERULAR FILTRATION RATE > 60.0 (>60); GLUCOSE, FASTING 124 MG/DL (60-100); POTASSIUM SERUM 3.5 MMOL/L (3.5-5.1); SODIUM LEVEL 139 MMOL/L (136-145); TOTAL PROTEIN 6.7 G/DL (5.7-8.2)
[2022-08-28] MEDS ORDERED: ISOVUE-370 76% 100ML VIAL As Ordered ONE (20:30)
[2022-08-28] MEDS ORDERED: ONDA4TAB6 PO (21:44)
[2022-08-28 22:00] VITALS: BP 121/73; TEMP 98.1; O2SAT 96
== END 2022-08-28 22:09 | disposition home or self-care (01) ==
LOC: EDBD 18:28 → M ED 18:28
DX: K52.9 Noninfective gastroenteritis and colitis, unspecified (principal); K59.00 Constipation, unspecified; E11.9 Type 2 diabetes mellitus without complications; F10.10 Alcohol abuse, uncomplicated; Z79.84 Long term (current) use of oral hypoglycemic drugs; Z79.4 Long term (current) use of insulin; Z79.01 Long term (current) use of anticoagulants; Z79.02 Long term (current) use of antithrombotics/antiplatelets; Z79.899 Other long term (current) drug therapy
CPT/HCPCS: 74177; 80048; 80076; 83605; 83690; 85025; 93005; 93041; 96360; 99284; Q9967

== ENCOUNTER 2023-02-09 18:12 | Emergency (ER) | payer OTHER ==
[~2023-02-09] VITALS: Ht 170.2 cm; Wt 97.6 kg
[2023-02-09 18:13] VITALS: TEMP 97.8
[2023-02-09 19:39] LABS: RSV AMPLIFICATION NEGATIVE (NEGATIVE)
[2023-02-09 19:40] VITALS: BP 125/74; O2SAT 97
[2023-02-09] MEDS ORDERED: ONDA4TAB6 PO (19:52)
[2023-02-09] MEDS ORDERED: BENZ200C70 PO (19:52)
== END 2023-02-09 19:59 | disposition home or self-care (01) ==
LOC: M ED 18:12
DX: U07.1 COVID-19 (principal); F32.A Depression, unspecified; F41.9 Anxiety disorder, unspecified; I10 Essential (primary) hypertension; Z79.01 Long term (current) use of anticoagulants; Z79.4 Long term (current) use of insulin; Z79.02 Long term (current) use of antithrombotics/antiplatelets; Z79.899 Other long term (current) drug therapy

== ENCOUNTER → 2023-03-07 | Outpatient (CLI) | payer OTHER ==
[~2023-03-07] MED LIST changes: +BENZ200C70 PO
[2023-03-07 14:19] LABS: BASO # 0.1 10^3/uL (0.0-0.2); EOS # 0.3 10^3/uL (0.0-0.5); EOS % 4.1 % (0.0-3.0); HEMATOCRIT 52.2 % (42.0-52.0); HEMOGLOBIN 17.3 g/dl (13.5-17.5); LYMPH # 2.3 10^3/uL (1.5-5.0); LYMPH % 34.3 % (24.0-44.0); MEAN CORPUSCULAR HEMOGLOBIN 29.7 pg (27.0-33.0); MEAN CORPUSCULAR HGB CONC 33.1 g/dl (32.0-36.5); MEAN CORPUSCULAR VOLUME 89.5 fl (80.0-96.0); MONO # 0.6 10^3/uL (0.0-0.8); MONO % 8.4 % (2.0-8.0); NEUTROPHILS # 3.5 10^3/uL (1.5-8.5); NEUTROPHILS % 51.9 % (36.0-66.0); PLATELET COUNT, AUTOMATED 326 10^3/uL (150-450); RED BLOOD COUNT 5.83 10^6/uL (4.30-6.10); WHITE BLOOD COUNT 6.8 10^3/uL (4.0-10.0)
[2023-03-07 14:39] LABS: HEMOGLOBIN A1c 10.6 % (4.0-6.0)
[2023-03-07 14:46] LABS: CREATININE, URINE 61.1 MG/DL
[2023-03-07 14:47] LABS: MAU/CREAT RATIO 37.6 MCG/MG (0.0-30.0)
[2023-03-07 14:50] LABS: ALBUMIN 3.6 G/DL (3.2-5.2); ALKALINE PHOSPHATASE 73 U/L (46-116); ALT/SGPT 25 U/L (7.0-40); AST/SGOT 9 U/L (<34); BILIRUBIN,TOTAL 0.7 MG/DL (0.3-1.2); BLOOD UREA NITROGEN 21 MG/DL (9-23); CALCIUM LEVEL 9.1 MG/DL (8.5-10.1); CARBON DIOXIDE LEVEL 30 MMOL/L (20-31); CHLORIDE LEVEL 107 MMOL/L (98-107); CHOLESTEROL LEVEL 149 MG/DL (<200); CHOLESTEROL RISK RATIO 2.85 (<5); CREATININE FOR GFR 0.73 MG/DL (0.70-1.30); GLOMERULAR FILTRATION RATE > 60.0 (>60); GLUCOSE, FASTING 92 MG/DL (60-100); HDL CHOLESTEROL 52.2 MG/DL (>40); NON-HDL-C 96.8 MG/DL; POTASSIUM SERUM 4.6 MMOL/L (3.5-5.1); SODIUM LEVEL 141 MMOL/L (136-145); TOTAL PROTEIN 6.6 G/DL (5.7-8.2); TRIGLYCERIDES LEVEL 99 MG/DL (<150)
== END ==
LOC: M PLALAB 10:13
PROVIDERS: ATTEND Nurse Practitioner Family
DX: E11.65 Type 2 diabetes mellitus with hyperglycemia (principal)

== ENCOUNTER 2023-03-26 18:24 | Emergency (ER) | payer OTHER ==
[~2023-03-26] VITALS: Ht 175.3 cm; Wt 101.8 kg
[2023-03-26 22:02] VITALS: BP 143/88; TEMP 97.6; O2SAT 96
== END 2023-03-26 22:06 | disposition home or self-care (01) ==
LOC: M ED 18:24
DX: S93.402A Sprain of unspecified ligament of left ankle, initial encounter (principal); X50.0XXA Overexertion from strenuous movement or load, initial encounter; I10 Essential (primary) hypertension; Y92.9 Unspecified place or not applicable; Y93.89 Activity, other specified; Y99.0 Civilian activity done for income or pay; Z86.718 Personal history of other venous thrombosis and embolism; Z79.01 Long term (current) use of anticoagulants; Z79.4 Long term (current) use of insulin; Z79.811 Long term (current) use of aromatase inhibitors; Z79.899 Other long term (current) drug therapy

== ENCOUNTER 2023-05-23 13:27 | Outpatient (RCR) | payer OTHER | END 2023-05-26 | LOC: M PT 13:27 | PROVIDERS: ATTEND Physician Assistant | DX: M25.572 Pain in left ankle and joints of left foot (principal) ==

== ENCOUNTER 2023-06-18 13:23 | Outpatient (RCR) | payer OTHER | END 2023-06-25 | LOC: M PT 13:23 | PROVIDERS: ATTEND Physician Assistant | DX: M25.572 Pain in left ankle and joints of left foot (principal) ==

== ENCOUNTER 2023-07-25 13:56 | Outpatient (RCR) | payer OTHER ==
[~2023-07-25 13:56] MED LIST changes: -ROSU10TA6 PO; +ROSU10TA61 PO
== END 2023-07-26 ==
LOC: M PT 13:56
PROVIDERS: ATTEND Physician Assistant
DX: M25.572 Pain in left ankle and joints of left foot (principal)

== ENCOUNTER → 2023-07-31 | Outpatient (CLI) | payer OTHER ==
[~2023-07-31] MED LIST changes: +ONDA-282 PO; -ONDA4TAB6 PO
== END ==
LOC: M SOG 07:54
PROVIDERS: ATTEND Physician Assistant
DX: M25.572 Pain in left ankle and joints of left foot (principal)

== ENCOUNTER → 2023-08-10 | Outpatient (CLI) | payer OTHER | LOC: M RAD 14:09 | PROVIDERS: ATTEND Physician Assistant | DX: M79.672 Pain in left foot (principal); M25.572 Pain in left ankle and joints of left foot ==

== ENCOUNTER 2023-11-12 17:03 | Emergency (ER) | payer OTHER ==
[~2023-11-12] VITALS: Ht 180.3 cm; Wt 105.0 kg
[2023-11-12 18:41] LABS: BASO # 0.1 10^3/uL (0.0-0.2); BASO % 0.8 % (0.0-1.0); EOS # 0.2 10^3/uL (0.0-0.5); EOS % 2.3 % (0.0-3.0); HEMATOCRIT 51.2 % (42.0-52.0); HEMOGLOBIN 17.2 g/dl (13.5-17.5); LYMPH # 2.7 10^3/uL (1.5-5.0); LYMPH % 27.1 % (24.0-44.0); MEAN CORPUSCULAR HEMOGLOBIN 30.3 pg (27.0-33.0); MEAN CORPUSCULAR HGB CONC 33.6 g/dl (32.0-36.5); MEAN CORPUSCULAR VOLUME 90.3 fl (80.0-96.0); MONO # 0.8 10^3/uL (0.0-0.8); MONO % 8.1 % (2.0-8.0); NEUTROPHILS # 6.1 10^3/uL (1.5-8.5); NEUTROPHILS % 61.4 % (36.0-66.0); PLATELET COUNT, AUTOMATED 348 10^3/uL (150-450); RED BLOOD COUNT 5.67 10^6/uL (4.30-6.10)
[2023-11-12 19:11] LABS: CK-MB VALUE MASS < 1.0 NG/ML (<3.6)
[2023-11-12 19:13] LABS: ALBUMIN 3.8 G/DL (3.2-5.2); ALKALINE PHOSPHATASE 74 U/L (46-116); ALT/SGPT 19 U/L (7.0-40); AST/SGOT < 8 U/L (<34); BILIRUBIN,DIRECT 0.2 MG/DL (<0.4); BILIRUBIN,TOTAL 0.5 MG/DL (0.3-1.2); BLOOD UREA NITROGEN 16 MG/DL (9-23); CALCIUM LEVEL 9.8 MG/DL (8.5-10.1); CARBON DIOXIDE LEVEL 28 MMOL/L (20-31); CHLORIDE LEVEL 106 MMOL/L (98-107); CREATININE FOR GFR 0.92 MG/DL (0.70-1.30); GLOMERULAR FILTRATION RATE > 60.0 (>60); GLUCOSE, FASTING 211 MG/DL (60-100); POTASSIUM SERUM 4.6 MMOL/L (3.5-5.1); SODIUM LEVEL 138 MMOL/L (136-145); TOTAL PROTEIN 7.1 G/DL (5.7-8.2)
[2023-11-12 19:14] LABS: CPK CREATINE PHOSPHOKINASE 66 U/L (46-171); MB/CK RELATIVE INDEX 1.51 (< OR =4)
[2023-11-12 20:34] VITALS: BP 141/86; TEMP 97.6; O2SAT 97
== END 2023-11-12 20:51 | disposition home or self-care (01) ==
LOC: M ED 17:03
DX: S29.011A Strain of muscle and tendon of front wall of thorax, initial encounter (principal); X50.0XXA Overexertion from strenuous movement or load, initial encounter; I10 Essential (primary) hypertension; G56.01 Carpal tunnel syndrome, right upper limb; E11.9 Type 2 diabetes mellitus without complications; F41.9 Anxiety disorder, unspecified; F32.A Depression, unspecified; Z86.718 Personal history of other venous thrombosis and embolism; Z79.01 Long term (current) use of anticoagulants; Z79.1 Long term (current) use of non-steroidal anti-inflammatories (NSAID); Z79.4 Long term (current) use of insulin; Z79.899 Other long term (current) drug therapy; Y92.9 Unspecified place or not applicable; Y93.H2 Activity, gardening and landscaping; Y99.9 Unspecified external cause status

== ENCOUNTER → 2024-02-01 | Outpatient (CLI) | payer OTHER ==
[2024-02-01 12:53] LABS: BASO # 0.1 10^3/uL (0.0-0.2); EOS # 0.4 10^3/uL (0.0-0.5); EOS % 4.9 % (0.0-3.0); HEMATOCRIT 46.5 % (42.0-52.0); HEMOGLOBIN 15.7 g/dl (13.5-17.5); LYMPH # 2.6 10^3/uL (1.5-5.0); LYMPH % 33.8 % (24.0-44.0); MEAN CORPUSCULAR HEMOGLOBIN 30.6 pg (27.0-33.0); MEAN CORPUSCULAR HGB CONC 33.8 g/dl (32.0-36.5); MEAN CORPUSCULAR VOLUME 90.6 fl (80.0-96.0); MONO # 0.5 10^3/uL (0.0-0.8); MONO % 6.3 % (2.0-8.0); NEUTROPHILS # 4.1 10^3/uL (1.5-8.5); NEUTROPHILS % 53.7 % (36.0-66.0); PLATELET COUNT, AUTOMATED 336 10^3/uL (150-450); RED BLOOD COUNT 5.13 10^6/uL (4.30-6.10); WHITE BLOOD COUNT 7.7 10^3/uL (4.0-10.0)
[2024-02-01 13:08] LABS: HEMOGLOBIN A1c 9.1 % (4.0-6.0)
[2024-02-01 13:21] LABS: CREATININE, URINE 237.5 MG/DL; MAU/CREAT RATIO 107.7 MCG/MG (0.0-30.0)
[2024-02-01 13:22] LABS: ALBUMIN 3.1 G/DL (3.2-5.2); ALKALINE PHOSPHATASE 82 U/L (40-129); ALT/SGPT 30 U/L (7.0-40); AST/SGOT 20 U/L (<34); BILIRUBIN,TOTAL 0.7 MG/DL (0.3-1.2); BLOOD UREA NITROGEN 11 MG/DL (9-23); CALCIUM LEVEL 9.3 MG/DL (8.5-10.1); CARBON DIOXIDE LEVEL 28 MMOL/L (20-31); CHLORIDE LEVEL 109 MMOL/L (98-107); CHOLESTEROL LEVEL 132 MG/DL (<200); CHOLESTEROL RISK RATIO 3.07 (<5); CREATININE FOR GFR 0.72 MG/DL (0.70-1.30); GLOMERULAR FILTRATION RATE > 60.0 (>60); GLUCOSE, FASTING 122 MG/DL (60-100); HDL CHOLESTEROL 42.9 MG/DL (>40); LDL CHOLESTEROL 68.7 MG/DL (<100); NON-HDL-C 89.1 MG/DL; POTASSIUM SERUM 4.3 MMOL/L (3.5-5.1); SODIUM LEVEL 142 MMOL/L (136-145); TOTAL PROTEIN 6.5 G/DL (5.7-8.2); TRIGLYCERIDES LEVEL 102 MG/DL (<150)
[2024-02-01 13:24] LABS: VITAMIN B12 LEVEL 475 PG/ML (211-911)
== END ==
LOC: M LAB 12:00
PROVIDERS: ATTEND Nurse Practitioner Family
DX: E78.2 Mixed hyperlipidemia (principal); R80.9 Proteinuria, unspecified; G62.9 Polyneuropathy, unspecified; E11.65 Type 2 diabetes mellitus with hyperglycemia

== ENCOUNTER 2024-03-15 15:53 | Emergency (ER) | payer OTHER ==
[~2024-03-15] VITALS: Ht 180.3 cm; Wt 113.0 kg
[2024-03-15 17:31] VITALS: BP 168/94; TEMP 97.2; O2SAT 98
== END 2024-03-15 17:47 | disposition home or self-care (01) ==
LOC: M ED 15:53
DX: M25.532 Pain in left wrist (principal); E11.9 Type 2 diabetes mellitus without complications; E78.5 Hyperlipidemia, unspecified; Z79.01 Long term (current) use of anticoagulants; Z86.711 Personal history of pulmonary embolism; Z79.02 Long term (current) use of antithrombotics/antiplatelets; Z79.4 Long term (current) use of insulin; Z79.899 Other long term (current) drug therapy

== ENCOUNTER → 2024-06-19 | Outpatient (REF) | payer OTHER ==
[~2024-06-19] MED LIST changes: +DULA3PEN; +FARX1TAB3 PO
[2024-06-19 14:41] LABS: BASO # 0.1 10^3/uL (0.0-0.2); BASO % 0.8 % (0.0-1.0); EOS # 0.4 10^3/uL (0.0-0.5); EOS % 3.2 % (0.0-3.0); HEMATOCRIT 51.1 % (42.0-52.0); HEMOGLOBIN 17.2 g/dl (13.5-17.5); LYMPH # 2.6 10^3/uL (1.5-5.0); LYMPH % 23.8 % (24.0-44.0); MEAN CORPUSCULAR HEMOGLOBIN 30.6 pg (27.0-33.0); MEAN CORPUSCULAR HGB CONC 33.7 g/dl (32.0-36.5); MEAN CORPUSCULAR VOLUME 90.8 fl (80.0-96.0); MONO # 0.7 10^3/uL (0.0-0.8); MONO % 6.3 % (2.0-8.0); NEUTROPHILS # 7.2 10^3/uL (1.5-8.5); NEUTROPHILS % 65.5 % (36.0-66.0); PLATELET COUNT, AUTOMATED 359 10^3/uL (150-450); RED BLOOD COUNT 5.63 10^6/uL (4.30-6.10)
[2024-06-19 15:17] LABS: FERRITIN 60.5 NG/ML (10.5-307.3)
[2024-06-19 15:18] LABS: ALBUMIN 3.7 G/DL (3.2-5.2); ALKALINE PHOSPHATASE 75 U/L (40-129); ALT/SGPT 22 U/L (7.0-40); AST/SGOT 14 U/L (<34); BILIRUBIN,TOTAL 0.5 MG/DL (0.3-1.2); BLOOD UREA NITROGEN 18 MG/DL (9-23); CALCIUM LEVEL 9.6 MG/DL (8.5-10.1); CARBON DIOXIDE LEVEL 28 MMOL/L (20-31); CHLORIDE LEVEL 103 MMOL/L (98-107); CREATININE FOR GFR 0.81 MG/DL (0.70-1.30); GLOMERULAR FILTRATION RATE > 90.0 (>60); GLUCOSE, FASTING 120 MG/DL (60-100); POTASSIUM SERUM 5.1 MMOL/L (3.5-5.1); SODIUM LEVEL 143 MMOL/L (136-145); TOTAL PROTEIN 6.9 G/DL (5.7-8.2)
[2024-06-19 15:29] LABS: HEMOGLOBIN A1c 7.8 % (4.0-6.0)
== END ==
LOC: M LABDRAWP 13:16
PROVIDERS: ATTEND Family Medicine
DX: E11.65 Type 2 diabetes mellitus with hyperglycemia (principal); I82.5Y1 Chronic embolism and thrombosis of unspecified deep veins of right proximal lower extremity

== ENCOUNTER 2024-06-26 06:05 | Day surgery (SDC) | payer OTHER ==
[~2024-06-26] VITALS: Ht 180.3 cm; Wt 110.6 kg
[2024-06-26] MEDS ORDERED: LR 1,000 ML IV SCH (06:30)
[2024-06-26] MEDS ORDERED: ONDANSETRON 4MG 2ML VIAL As Ordered ONE (06:49)
[2024-06-26] MEDS ORDERED: propofoL 200 MG/20 ML VIAL As Ordered ONE (06:49)
[2024-06-26] MEDS ORDERED: LIDOCAINE 2% 100MG/5ML SDV (FOR ANES.) As Ordered ONE (06:49)
[2024-06-26] MEDS ORDERED: KETOROLAC 30 MG/ML 1ML VIAL As Ordered ONE (06:49)
[2024-06-26] MEDS ORDERED: fentaNYL 100 MCG/2 ML INJECTION As Ordered ONE (06:50)
[2024-06-26] MEDS: BACITRACIN OINTMENT 30GM TUBE As Ordered ONE (08:01)
[2024-06-26] MEDS ORDERED: ePHEDrine SULFATE 25 MG/5 ML(5MG/ML) SYRINGE As Ordered ONE (08:13)
[2024-06-26 08:43] VITALS: BP 139/85; TEMP 97.9; O2SAT 97
== END 2024-06-26 08:53 | disposition home or self-care (01) ==
LOC: M SDC 06:05
PROVIDERS: ATTEND Orthopaedic Surgery Hand Surgery
DX: E11.9 Type 2 diabetes mellitus without complications (principal); Z86.711 Personal history of pulmonary embolism; Z79.01 Long term (current) use of anticoagulants; Z79.4 Long term (current) use of insulin; Z79.899 Other long term (current) drug therapy
CPT/HCPCS: 25000; J0665; J1885; J2405; J3010

== ENCOUNTER 2025-02-04 22:19 | Emergency (ER) | payer OTHER ==
[~2025-02-04 22:19] MED LIST changes: +METH-1164 PO; -ROSU10TA61 PO; +ROSU10TA90 PO
[2025-02-04 23:02] LABS: BASO # 0.1 10^3/uL (0.0-0.2); BASO % 0.7 % (0.0-1.0); EOS # 0.4 10^3/uL (0.0-0.5); EOS % 3.1 % (0.0-3.0); LYMPH # 2.9 10^3/uL (1.5-5.0); LYMPH % 23.7 % (24.0-44.0); MONO # 0.9 10^3/uL (0.0-0.8); MONO % 7.5 % (2.0-8.0); NEUTROPHILS # 7.9 10^3/uL (1.5-8.5); NEUTROPHILS % 64.8 % (36.0-66.0); PLATELET COUNT, AUTOMATED 359 10^3/uL (150-450)
[2025-02-04 23:30] LABS: ALT/SGPT 20 U/L (7.0-40); AST/SGOT 20 U/L (<34); CALCIUM LEVEL 8.8 MG/DL (8.5-10.1); CARBON DIOXIDE LEVEL 28 MMOL/L (20-31); CHLORIDE LEVEL 105 MMOL/L (98-107); CK-MB VALUE MASS 5.1 NG/ML (<3.6); CREATININE FOR GFR 0.87 MG/DL (0.70-1.30); GLOMERULAR FILTRATION RATE > 90.0 (>60); POTASSIUM SERUM 4.4 MMOL/L (3.5-5.1); SODIUM LEVEL 141 MMOL/L (136-145)
[2025-02-04 23:32] LABS: CPK CREATINE PHOSPHOKINASE 253 U/L (46-171); INR 1.0; MB/CK RELATIVE INDEX 2.01 (< OR =4)
[2025-02-05] MEDS: KETOROLAC 30 MG/ML 1 ML VIAL IV ONE (01:13)
[2025-02-05] MEDS ORDERED: MEDR4PAK PO (01:35)
[2025-02-05 02:30] VITALS: BP 129/69; TEMP 96.5; O2SAT 94
== END 2025-02-05 02:44 | disposition home or self-care (01) ==
LOC: M ED 22:19
DX: R07.9 Chest pain, unspecified (principal); M25.511 Pain in right shoulder; M19.011 Primary osteoarthritis, right shoulder; E11.9 Type 2 diabetes mellitus without complications; E78.5 Hyperlipidemia, unspecified; Z86.711 Personal history of pulmonary embolism; Z79.01 Long term (current) use of anticoagulants; Z79.02 Long term (current) use of antithrombotics/antiplatelets; Z79.899 Other long term (current) drug therapy; Z79.4 Long term (current) use of insulin
CPT/HCPCS: 71045; 73030; 80048; 80076; 82550; 82553; 83690; 84484; 85025; 85610; 93005; 93041; 94760; 96374; 99285; J1885

== ENCOUNTER 2025-02-12 12:26 | Emergency (ER) | payer OTHER ==
[~2025-02-12] VITALS: Ht 180.3 cm; Wt 107.9 kg
[~2025-02-12 12:26] MED LIST changes: +MEDR4PAK PO
[2025-02-12 13:00] LABS: BASO # 0.1 10^3/uL (0.0-0.2); BASO % 0.6 % (0.0-1.0); EOS # 0.2 10^3/uL (0.0-0.5); EOS % 1.6 % (0.0-3.0); LYMPH # 2.6 10^3/uL (1.5-5.0); LYMPH % 23.7 % (24.0-44.0); MONO # 0.9 10^3/uL (0.0-0.8); MONO % 7.8 % (2.0-8.0); NEUTROPHILS # 7.2 10^3/uL (1.5-8.5); NEUTROPHILS % 65.8 % (36.0-66.0); PLATELET COUNT, AUTOMATED 410 10^3/uL (150-450)
[2025-02-12] MEDS ORDERED: ISOVUE-370 76% 100 ML VIAL As Ordered ONE (13:01)
[2025-02-12 13:30] LABS: CK-MB VALUE MASS 1.6 NG/ML (<3.6)
[2025-02-12 13:40] LABS: CPK CREATINE PHOSPHOKINASE 59.0 U/L (46-171); MB/CK RELATIVE INDEX 2.71 (< OR =4)
[2025-02-12 17:55] VITALS: BP 133/91; TEMP 98.9; O2SAT 95
== END 2025-02-12 18:10 | disposition home or self-care (01) ==
LOC: M ED 12:26
DX: R07.89 Other chest pain (principal); E11.9 Type 2 diabetes mellitus without complications; R16.0 Hepatomegaly, not elsewhere classified; I10 Essential (primary) hypertension; Z86.718 Personal history of other venous thrombosis and embolism; Z79.01 Long term (current) use of anticoagulants; Z79.02 Long term (current) use of antithrombotics/antiplatelets; Z79.899 Other long term (current) drug therapy; Z79.4 Long term (current) use of insulin
CPT/HCPCS: 36415; 71275; 76705; 80047; 82550; 82553; 84484; 85025; 87486; 87581; 87633; 87798; 93005; 99284; Q9967